=== PATIENT | male | born 1980 | race American Indian/Alaskan Native ===

== ENCOUNTER 2019-08-26 17:36 | Inpatient (IN) | payer BC, OTHER ==
[2019-08-26] MEDS ORDERED: SODIUM CHLORIDE 0.9% 1000 ML IV SOLN IV ONE (19:24)
--- NOTE | 2019-08-26 19:26 | Event Note ---
ED Screening Note ED Screening Note: FEBRILE TACHYCARDIA SOB This initial assessment/diagnostic orders/clinical plan/treatment(s) is/are subject to change based on patients health status, clinical progression and re- assessment by fellow clinical providers in the ED. Further treatment and workup at subsequent clinical providers discretion. Patient/guardian urged not to elope from the ED as their condition may be serious if not clinically assessed and managed. Initial orders include: CODE SEPSIS
[2019-08-26] MEDS ORDERED: AZITHROMYCIN 500 MG in SODIUM CHLORIDE 0.9% 250ML 250 ML IV SCH (20:00)
[2019-08-26 20:06] LABS: Hematocrit 45.4 % (35.5-45.6); Hemoglobin 15.3 gm/dl (11.8-15.2); Mean Corpuscular HGB Conc 34 % (32-34); Mean Corpuscular Volume 95 fl (84-94); Platelet Count 217 K/mm3 (140-440); Red Blood Count 4.76 M/mm3 (3.65-5.03); Red Cell Distribution Width 12.6 % (13.2-15.2)
[2019-08-26 20:24] LABS: Alanine Aminotransferase 58 units/L (7-56); Albumin 3.4 g/dL (3.9-5); BUN/Creatinine Ratio 15; Blood Urea Nitrogen 9 mg/dL (9-20); Calcium 8.7 mg/dL (8.4-10.2); Hemolysis Index 17
--- NOTE | 2019-08-26 20:36 | XRay Report ---
CHEST 1 VIEW 7:53 PM INDICATION / CLINICAL INFORMATION: Difficulty breathing, cough and low O2 sats. COMPARISON: None available. FINDINGS: SUPPORT DEVICES: None. HEART / MEDIASTINUM: There is borderline cardiomegaly and prominence of the central pulmonary vessels . LUNGS / PLEURA: Interstitial lung markings are mildly increased in both perihilar regions and lower l raji zones. There is minimal subsegmental parenchymal disease in the right lung base. No pneumothorax. ADDITIONAL FINDINGS: The right hemidiaphragm is mildly elevated. IMPRESSION: 1. Borderline cardiomegaly and pulmonary vascular congestion/edema. 2. Mild right basilar subsegmental atelectasis and elevation of the right hemidiaphragm. Signer Name: Salvador Davis MD Signed: 08/26/2019 8:32 PM Workstation Name: [id number]
[2019-08-26] MEDS ORDERED: ACETAMINOPHEN 500 MG TAB PO ONE (20:41)
[2019-08-26] MEDS ORDERED: cefTRIAXone/NS 2 GM/100 ML 2 GM/100 ML BAG IV ONE (20:42)
[2019-08-26 20:46] LABS: Chol/HDL Ratio 4.17 %; HDL Cholesterol 29 mg/dL (40-59)
--- NOTE | 2019-08-26 21:01 | Emergency Department Report ---
HPI - General Chief Complaint: Dyspnea/Respdistress PUI?: Yes Time Seen by Provider: 08/26/19 19:24 - HPI HPI: Room 10 The patient is a 39-year-old male present with a chief complaint of shortness of breath. The patient states for 11 days he has had shortness of breath. Patient admits to a cough that has been nonproductive. Patient admits to subjective fever. The patient states he was tested for COVID-19 5 days ago but has not yet received his results. ED Past Medical Hx - Past Medical History Previous Medical History?: No - Surgical History Past Surgical History?: No - Family History Family history: no significant - Social History Smoking Status: Never Smoker Substance Use Type: None (Denies illicit drug use), Alcohol ED Review of Systems ROS: Stated complaint: SOB,LOW 02 Other details as noted in HPI Constitutional: fever Respiratory: cough, shortness of breath Endocrine: no symptoms reported Physical Exam - Physical Exam Vital Signs: Vital Signs 08/26/19 19:25 Temperature 102.9 F H Pulse Rate 122 H Respiratory 16 Rate Blood Pressure 130/82 O2 Sat by Pulse 88 Oximetry Physical Exam: GENERAL: The patient is well-developed well-nourished male lying on stretcher n ot appearing to be in acute distress. [] HEENT: Normocephalic. Atraumatic. Extraocular motions are intact. Patient has moist mucous membranes. NECK: Supple. Trachea midline CHEST/LUNGS: Occasional rhonchi. There is no respiratory distress noted. HEART/CARDIOVASCULAR: Regular. There is tachycardia. There is no gallop rub or murmur. ABDOMEN: Abdomen is soft, nontender. Patient has normal bowel sounds. There is no abdominal distention. SKIN: There is no rash. There is no diaphoresis. NEURO: The patient is awake, alert, and oriented. The patient is cooperative. The patient has normal speech MUSCULOSKELETAL: There is no evidence of acute injury. ED Course Vital Signs 08/26/19 19:25 Temperature 102.9 F H Pulse Rate 122 H Respiratory 16 Rate Blood Pressure 130/82 O2 Sat by Pulse 88 Oximetry ED Medical Decision Making - Lab Data Result diagrams: 08/26/19 19:38 08/26/19 19:38 - Differential Diagnosis COVID-19, pneumonia, bronchitis Critical care attestation.: If time is entered above; I have spent that time in minutes in the direct care of this critically ill patient, excluding procedure time. ED Disposition Clinical Impression: Bilateral pneumonia, Suspected COVID-19 virus infection, Hypoxia Disposition: OP ADMIT IP TO THIS HOSP Is pt being admited?: Yes Does the pt Need Aspirin: No Condition: Serious Instructions: Bacterial Pneumonia (ED) Referrals: PRIMARY CARE, [Primary Care Provider] - 3-5 Days Time of Disposition: 21:02 (Hospitalist paged (Dr Ivy))
[2019-08-26 21:07] LABS: LDL Cholesterol,Direct 76 mg/dL (50-130)
[2019-08-26] MEDS ORDERED: dexAMETHasone 4 MG/ML VIAL IV ONE (21:29)
[2019-08-26] MEDS ORDERED: SODIUM CHLORIDE 0.9% 1000 ML 2,000 ML ONE (21:34)
[2019-08-26 21:49] LABS: Basophils % (Manual) 0 % (0.0-1.8); Eosinophils % (Manual) 0 % (0.0-4.3); RBC Morphology Normal; Total Cells Counted 100
[2019-08-26] MEDS ORDERED: ACETAMINOPHEN 325 MG TAB PO PRN (23:20)
[2019-08-26] MEDS ORDERED: MAGNESIUM HYDROXIDE (MOM) ORAL LIQD UDC PO PRN (23:20)
[2019-08-26] MEDS ORDERED: ONDANSETRON 4 MG/2 ML INJ IV PRN (23:20)
--- NOTE | 2019-08-26 23:28 | History and Physical Report ---
History of Present Illness Date of examination: 08/26/19 Date of admission: 08/26/19 21:35 Chief complaint: Cough Shortness of breath History of present illness: 39-year-old male with no significant past medical history presenting to the emergency room today complaining of shortness of breath or cough which has been ongoing for about 10 to 11 days. Cough has been nonproductive. He has had some low-grade fever at home. He denies any chest pain. No nausea vomiting, no diarrhea, no abdominal pain, no hematuria or dysuria, no headache or dizziness. Patient denies any sick contacts and no recent recent travel. Denies contact with anyone with COVID-19. Patient indicates that he was tested for COVID 19 about 5 days ago however he has not received the results. Upon arrival in the emergency room patient was found to be hypoxic with O2 saturation of about 88 on room air. Patient was placed on oxygen with improvement in his oxygen saturation. Chest x-ray done was consistent with possible pneumonia. Patient has been placed on isolation precautions to rule out COVID-19. Past History Past Medical History: No medical history Past Surgical History: No surgical history Social history: no significant social history Family history: no significant family history Medications and Allergies Allergies Allergy/AdvReac Type Severity Reaction Status Date / Time No Known Allergies Allergy Verified 08/26/19 19:27 Active Meds: Active Medications Acetaminophen (Tylenol) 650 mg PO Q4H PRN PRN Reason: Pain MILD(1-3)/Fever >100.5/VELASQUEZ Enoxaparin Sodium (Enoxaparin) 40 mg SUB-Q QDAY@2200 KAREEM Azithromycin 500 mg/ Sodium (Chloride) 250 mls @ 250 mls/hr IV Q24HR KAREEM; Pr otocol Last Admin: 08/26/19 22:33 Dose: 250 mls/hr Documented by: Ceftriaxone Sodium (Rocephin/Ns 2 Gm/100 Ml) 2 gm in 100 mls @ 200 mls/hr IV Q24HR KAREEM; Protocol Magnesium Hydroxide (Milk Of Magnesia) 30 ml PO Q4H PRN PRN Reason: Constipation Ondansetron HCl (Zofran) 4 mg IV Q8H PRN PRN Reason: Nausea And Vomiting Sodium Chloride (Sodium Chloride Flush Syringe 10 Ml) 10 ml IV BID KAREEM Sodium Chloride (Sodium Chloride Flush Syringe 10 Ml) 10 ml IV PRN PRN PRN Reason: LINE FLUSH Review of Systems Constitutional: fever, no chills Ears, nose, mouth and throat: no nasal congestion, no sore throat Cardiovascular: no chest pain, no palpitations Respiratory: cough, shortness of breath Gastrointestinal: no abdominal pain, no nausea, no vomiting, no diarrhea Genitourinary Male: no dysuria, no hematuria Musculoskeletal: no neck pain, no low back pain Integumentary: no rash, no pruritis Neurological: no headaches, no confusion Psychiatric: no anxiety, no depression Exam - Constitutional Vitals: Temp Pulse Resp BP Pulse Ox 102.9 F H 104 H 43 H 142/78 92 08/26/19 19:25 08/26/19 21:45 08/26/19 21:45 08/26/19 21:45 08/26/19 21:45 General appearance: Present: no acute distress, well-nourished - EENT Eyes: Present: PERRL, EOM intact. Absent: scleral icterus ENT: hearing intact, clear oral mucosa, dentition normal - Neck Neck: Present: supple, normal ROM - Respiratory Respiratory effort: normal Respiratory: bilateral: diminished - Cardiovascular Rhythm: regular Heart Sounds: Present: S1 & S2. Absent: gallop, systolic murmur, diastolic murmur, rub - Extremities Extremities: no ischemia, pulses intact, pulses symmetrical, No edema, Full ROM Peripheral Pulses: within normal limits - Abdominal General gastrointestinal: Present: soft, non-tender, non-distended, normal bowel sounds - Integumentary Integumentary: Present: clear, warm, dry - Musculoskeletal Musculoskeletal: strength equal bilaterally - Psychiatric Psychiatric: appropriate mood/affect, intact judgment & insight, memory intact, cooperative - Neurologic Neurologic: CNII-XII intact, no focal deficits, moves all extremities HEART Score - HEART Score Troponin: Troponin T 0.032 ng/mL (0.00-0.029) H 08/26/19 19:38 Results - Labs CBC & Chem 7: 08/26/19 19:38 08/27/19 05:09 Labs: Abnormal lab results 08/26/19 08/26/19 08/26/19 Range/Units 19:38 19:38 19:38 WBC 12.2 H (4.5-11.0) K/mm3 Hgb 15.3 H (11.8-15.2) gm/dl MCV 95 H (84-94) fl RDW 12.6 L (13.2-15.2) % Seg Neuts % (Manual) 88.0 H (40.0-70.0) % Lymphocytes % (Manual) 7.0 L (13.4-35.0) % Seg Neutrophils # Man 10.7 H (1.8-7.7) K/mm3 Lymphocytes # (Manual) 0.9 L (1.2-5.4) K/mm3 D-Dimer (0-234) ng/mlDDU Sodium 136 L (137-145) mmol/L Chloride 97.1 L (98-107) mmol/L Creatinine 0.6 L (0.8-1.5) mg/dL Glucose 117 H (75-100) mg/dL Lactic Acid 2.30 H* (0.7-2.0) mmol/L AST 46 H (5-40) units/L ALT 58 H (7-56) units/L Lactate Dehydrogenase (91-180) units/L Troponin T 0.032 H (0.00-0.029) ng/mL C-Reactive Protein (0.00-1.30) mg/dL NT-Pro-B Natriuret Pep (0-450) pg/mL Albumin 3.4 L (3.9-5) g/dL HDL Cholesterol 29 L (40-59) mg/dL 08/26/19 08/26/19 08/26/19 Range/Units 19:38 19:38 19:38 WBC (4.5-11.0) K/mm3 Hgb (11.8-15.2) gm/dl MCV (84-94) fl RDW (13.2-15.2) % Seg Neuts % (Manual) (40.0-70.0) % Lymphocytes % (Manual) (13.4-35.0) % Seg Neutrophils # Man (1.8-7.7) K/mm3 Lymphocytes # (Manual) (1.2-5.4) K/mm3 D-Dimer 504.52 H (0-234) ng/mlDDU Sodium (137-145) mmol/L Chloride (98-107) mmol/L Creatinine (0.8-1.5) mg/dL Glucose 116 H (75-100) mg/dL Lactic Acid (0.7-2.0) mmol/L AST (5-40) units/L ALT (7-56) units/L Lactate Dehydrogenase 740 H (91-180) units/L Troponin T (0.00-0.029) ng/mL C-Reactive Protein 25.00 H (0.00-1.30) mg/dL NT-Pro-B Natriuret Pep 616.8 H (0-450) pg/mL Albumin (3.9-5) g/dL HDL Cholesterol (40-59) mg/dL Assessment and Plan - Patient Problems (1) Bilateral pneumonia Current Visit: Yes Status: Acute Plan to address problem: Patient commenced on empiric IV antibiotics. (2) Hypoxia Current Visit: Yes Status: Acute Plan to address problem: Possibly secondary to underlying pneumonia. We will keep oxygen saturation grea ter or equal to 94%. (3) Suspected COVID-19 virus infection Current Visit: Yes Status: Acute Plan to address problem: Patient placed on isolation precautions. We will request evaluation and recommendations from infectious disease. He has been started on IV steroid. (4) DVT prophylaxis Current Visit: Yes Status: Acute Plan to address problem: Patient placed on subcutaneous Lovenox. (5) Full code status Current Visit: Yes Status: Acute
[2019-08-27 02:08] LABS: Bilirubin,Urine NEG (Negative); Blood,Urine NEG (Negative); Color,Urine Yellow (Yellow); Mucus,Urine FEW /HPF
[2019-08-27 06:06] LABS: Hematocrit 44.8 % (35.5-45.6); Hemoglobin 15.1 gm/dl (11.8-15.2); Mean Corpuscular HGB Conc 34 % (32-34); Mean Corpuscular Volume 96 fl (84-94); Platelet Count 213 K/mm3 (140-440); Red Blood Count 4.68 M/mm3 (3.65-5.03); Red Cell Distribution Width 13.1 % (13.2-15.2)
[2019-08-27 06:10] LABS: BUN/Creatinine Ratio 22; Blood Urea Nitrogen 11 mg/dL (9-20); Calcium 8.3 mg/dL (8.4-10.2); Hemolysis Index 6
[2019-08-27 06:26] LABS: INR 1.01 (0.87-1.13)
[2019-08-27] MEDS ORDERED: dexAMETHasone 4 MG/ML VIAL IV SCH (10:00)
--- NOTE | 2019-08-27 10:31 | Event Note ---
Date: 08/27/19 COVID results pending. High suspicion. Patient on NRB. Recs: continue steroids if COVID positive, please order Remdesivir x 5 days and also order tocilizumab 8mg/kg x 1 monitor markers and oxygenation
[2019-08-27] MEDS: DEXAMETHASONE 4 MG TAB PO SCH (11:10)
--- NOTE | 2019-08-27 14:15 | Progress Note ---
Subjective Date of service: 08/27/19 Interval history: 39-year-old male with no significant past medical history presenting to the emergency room today complaining of shortness of breath or cough which has been ongoing for about 10 to 11 days. Cough has been nonproductive. He has had some low-grade fever at home. He denies any chest pain. No nausea vomiting, no diarrhea, no abdominal pain, no hematuria or dysuria, no headache or dizziness. Patient denies any sick contacts and no recent recent travel. Denies contact with anyone with COVID-19. Patient indicates that he was tested for COVID 19 about 5 days ago however he has not received the results. Upon arrival in the emergency room patient was found to be hypoxic with O2 saturation of about 88 on room air. Patient was placed on oxygen with improvement in his oxygen saturation. Chest x-ray done was consistent with possible pneumonia. Patient has been placed on isolation precautions to rule out COVID-19. 08/26 Patient is awake alert and oriented, [id number] Mildly short of breath and has mild cough History is limited He is on nonrebreather mask COVID-19 test result is pending Assessment and plan Bilateral pneumonia Continue empiric IV antibiotics with Rocephin and azithromycin Suspected COVID-19 pneumonia Test results pending Brief ID note reviewed We will start on Remdesivir x 5 days and Actemra 1 dose Acute hypoxic respiratory failure continue oxygen via nonrebreather mask DVT prophylaxis Continue Lovenox Objective - Constitutional Vitals: Vital Signs - 12hr 08/27/19 08/27/19 03:09 04:37 Temperature 97.3 F L Pulse Rate 92 H Respiratory 16 Rate Blood Pressure 142/78 137/78 O2 Sat by Pulse 96 Oximetry General appearance: Present: mild distress - EENT Eyes: PERRL, EOM intact ENT: hearing intact, clear oral mucosa (Lisinopril1) - Neck Neck: supple, normal ROM, no masses or JVD - Respiratory Respiratory effort: other Respiratory: bilateral: CTA, diminished - Cardiovascular Rhythm: regular Heart Sounds: Present: S1 & S2 Extremities: No edema - Gastrointestinal General gastrointestinal: Present: soft, non-tender Rectal Exam: deferred - Genitourinary Male genitourinary: deferred - Integumentary Integumentary: clear - Musculoskeletal Musculoskeletal: strength equal bilaterally - Neurologic Neurologic: no focal deficits, moves all extremities - Psychiatric Psychiatric: appropriate mood/affect - Labs CBC & Chem 7: 08/27/19 05:09 08/27/19 05:09 Labs: Abnormal lab results 08/26/19 08/26/19 08/26/19 Range/Units 19:38 19:38 19:38 WBC 12.2 H (4.5-11.0) K/mm3 Hgb 15.3 H (11.8-15.2) gm/dl MCV 95 H (84-94) fl RDW 12.6 L (13.2-15.2) % Seg Neuts % (Manual) 88.0 H (40.0-70.0) % Lymphocytes % (Manual) 7.0 L (13.4-35.0) % Seg Neutrophils # Man 10.7 H (1.8-7.7) K/mm3 Lymphocytes # (Manual) 0.9 L (1.2-5.4) K/mm3 D-Dimer (0-234) ng/mlDDU Sodium 136 L (137-145) mmol/L Chloride 97.1 L (98-107) mmol/L Creatinine 0.6 L (0.8-1.5) mg/dL Glucose 117 H (75-100) mg/dL Lactic Acid 2.30 H* (0.7-2.0) mmol/L Calcium (8.4-10.2) mg/dL Ferritin (13.0-400.0) ng/mL AST 46 H (5-40) units/L ALT 58 H (7-56) units/L Lactate Dehydrogenase (91-180) units/L Troponin T 0.032 H (0.00-0.029) ng/mL C-Reactive Protein (0.00-1.30) mg/dL NT-Pro-B Natriuret Pep (0-450) pg/mL Albumin 3.4 L (3.9-5) g/dL HDL Cholesterol 29 L (40-59) mg/dL 08/26/19 08/26/19 08/26/19 Range/Units 19:38 19:38 19:38 WBC (4.5-11.0) K/mm3 Hgb (11.8-15.2) gm/dl MCV (84-94) fl RDW (13.2-15.2) % Seg Neuts % (Manual) (40.0-70.0) % Lymphocytes % (Manual) (13.4-35.0) % Seg Neutrophils # Man (1.8-7.7) K/mm3 Lymphocytes # (Manual) (1.2-5.4) K/mm3 D-Dimer 504.52 H (0-234) ng/mlDDU Sodium (137-145) mmol/L Chloride (98-107) mmol/L Creatinine (0.8-1.5) mg/dL Glucose 116 H (75-100) mg/dL Lactic Acid (0.7-2.0) mmol/L Calcium (8.4-10.2) mg/dL Ferritin 1959.0 H (13.0-400.0) ng/mL AST (5-40) units/L ALT (7-56) units/L Lactate Dehydrogenase 740 H (91-180) units/L Troponin T (0.00-0.029) ng/mL C-Reactive Protein 25.00 H (0.00-1.30) mg/dL NT-Pro-B Natriuret Pep (0-450) pg/mL Albumin (3.9-5) g/dL HDL Cholesterol (40-59) mg/dL 08/26/19 08/27/19 08/27/19 Range/Units 19:38 05:09 05:09 WBC (4.5-11.0) K/mm3 Hgb (11.8-15.2) gm/dl MCV 96 H (84-94) fl RDW 13.1 L (13.2-15.2) % Seg Neuts % (Manual) (40.0-70.0) % Lymphocytes % (Manual) (13.4-35.0) % Seg Neutrophils # Man (1.8-7.7) K/mm3 Lymphocytes # (Manual) (1.2-5.4) K/mm3 D-Dimer (0-234) ng/mlDDU Sodium (137-145) mmol/L Chloride (98-107) mmol/L Creatinine 0.5 L (0.8-1.5) mg/dL Glucose 125 H (75-100) mg/dL Lactic Acid (0.7-2.0) mmol/L Calcium 8.3 L (8.4-10.2) mg/dL Ferritin (13.0-400.0) ng/mL AST (5-40) units/L ALT (7-56) units/L Lactate Dehydrogenase (91-180) units/L Troponin T (0.00-0.029) ng/mL C-Reactive Protein (0.00-1.30) mg/dL NT-Pro-B Natriuret Pep 616.8 H (0-450) pg/mL Albumin (3.9-5) g/dL HDL Cholesterol (40-59) mg/dL HEART Score - HEART Score Troponin: Troponin T 0.032 ng/mL (0.00-0.029) H 08/26/19 19:38
[2019-08-27 15:13] LABS: Band Neutrophils # (Manual) 0.1 K/mm3; Basophils % (Manual) 0 % (0.0-1.8); Eosinophils % (Manual) 0 % (0.0-4.3); Platelet Estimate Consistent w Auto; RBC Morphology Normal; Total Cells Counted 100
[2019-08-27] MEDS ORDERED: AZITHROMYCIN 250 MG TAB PO SCH (22:00)
[2019-08-27] MEDS ORDERED: cefTRIAXone/NS 2 GM/100 ML 2 GM/100 ML BAG IV SCH (22:00)
[2019-08-27] MEDS: ENOXAPARIN 40 MG/0.4 ML INJ SUB-Q SCH (22:39)
[2019-08-28] MEDS: DEXAMETHASONE 4 MG TAB PO SCH (09:27)
[2019-08-28] MEDS ORDERED: REMDESIVIR 200 MG in SODIUM CHLORIDE 0.9% 250ML 250 ML IV ONE (14:00)
[2019-08-28] MEDS ORDERED: SODIUM CHLORIDE 0.9% 50 ML IVPB IV ONE (14:00)
--- NOTE | 2019-08-28 15:33 | Progress Note ---
Subjective Date of service: 08/28/19 Interval history: 39-year-old male with no significant past medical history presenting to the emergency room today complaining of shortness of breath or cough which has been ongoing for about 10 to 11 days. Cough has been nonproductive. He has had some low-grade fever at home. He denies any chest pain. No nausea vomiting, no diarrhea, no abdominal pain, no hematuria or dysuria, no headache or dizziness. Patient denies any sick contacts and no recent recent travel. Denies contact with anyone with COVID-19. Patient indicates that he was tested for COVID 19 about 5 days ago however he has not received the results. Upon arrival in the emergency room patient was found to be hypoxic with O2 saturation of about 88 on room air. Patient was placed on oxygen with improvement in his oxygen saturation. Chest x-ray done was consistent with possible pneumonia. Patient has been placed on isolation precautions for COVID-19. 08/26 Patient is awake alert and oriented, [id number] Mildly short of breath and has mild cough History is limited He is on nonrebreather mask COVID-19 test result is positive Assessment and plan Bilateral pneumonia 2/2 COVID-19 pneumonia Lab results reviewed Brief ID note reviewed Remdesivir x 5 days and Actemra 1 dose Procalcitonin is normal Discontinue IV antibiotics Recheck inflammatory markers tomorrow Acute hypoxic respiratory failure continue oxygen via nonrebreather mask DVT prophylaxis Continue Lovenox Objective - Constitutional Vitals: Vital Signs - 12hr 08/28/19 08/28/19 05:50 07:46 Temperature 98.7 F Pulse Rate 95 H Respiratory 16 Rate Blood Pressure 116/79 O2 Sat by Pulse 97 100 Oximetry General appearance: Present: mild distress - EENT Eyes: PERRL, EOM intact ENT: hearing intact, clear oral mucosa - Neck Neck: supple, normal ROM - Respiratory Respiratory effort: normal (Mildly short of breath) Respiratory: bilateral: CTA, diminished - Cardiovascular Rhythm: regular Heart Sounds: Present: S1 & S2 Extremities: No edema - Gastrointestinal General gastrointestinal: Present: soft, non-tender Rectal Exam: deferred - Genitourinary Male genitourinary: deferred - Integumentary Integumentary: clear - Musculoskeletal Musculoskeletal: strength equal bilaterally - Neurologic Neurologic: no focal deficits - Psychiatric Psychiatric: appropriate mood/affect - Labs CBC & Chem 7: 08/27/19 05:09 08/27/19 05:09 Labs: Abnormal lab results 08/26/19 Range/Units Unknown Coronavirus (PCR) Positive A (Negative) HEART Score - HEART Score Troponin: Troponin T 0.032 ng/mL (0.00-0.029) H 08/26/19 19:38
[2019-08-28] MEDS ORDERED: TOCILIZUMAB 400 MG in SODIUM CHLORIDE 0.9% 100 ML IV ONE (16:00)
[2019-08-28] MEDS: ENOXAPARIN 40 MG/0.4 ML INJ SUB-Q SCH (21:11)
[2019-08-28] MEDS: SODIUM CHLORIDE 0.9% 50 ML IVPB IV SCH (21:14)
--- NOTE | 2019-08-29 12:50 | Progress Note ---
Subjective Date of service: 08/29/19 Interval history: 39-year-old male with no significant past medical history presenting to the emergency room today complaining of shortness of breath or cough which has been ongoing for about 10 to 11 days. Cough has been nonproductive. He has had some low-grade fever at home. He denies any chest pain. No nausea vomiting, no diarrhea, no abdominal pain, no hematuria or dysuria, no headache or dizziness. Patient denies any sick contacts and no recent recent travel. Denies contact with anyone with COVID-19. Patient indicates that he was tested for COVID 19 about 5 days ago however he has not received the results. Upon arrival in the emergency room patient was found to be hypoxic with O2 saturation of about 88 on room air. Patient was placed on oxygen with improvement in his oxygen saturation. Chest x-ray done was consistent with possible pneumonia. Patient has been placed on isolation precautions for COVID-19. 08/26 Patient is awake alert and oriented, [id number] Mildly short of breath and has mild cough History is limited He is on nonrebreather mask COVID-19 test result is positive 08/28 Patient is alert and oriented He is still on nonrebreather mask Overall feels better and less dyspneic Denies any chest pain, cough or fever Discussed with respiratory therapist to see if he can come off the nonrebreather mask to nasal cannula Lab results reviewed Assessment and plan Bilateral pneumonia 2/2 COVID-19 pneumonia Lab results reviewed Brief ID note reviewed Remdesivir x 5 days and Actemra 1 dose Procalcitonin is normal Discontinue IV antibiotics Acute hypoxic respiratory failure continue oxygen via nonrebreather mask Wean as tolerated to nasal cannula DVT prophylaxis Continue Lovenox Objective - Constitutional Vitals: Vital Signs - 12hr 08/29/19 08/29/19 09:00 10:00 O2 Sat by Pulse 98 92 Oximetry General appearance: Present: mild distress - EENT Eyes: PERRL, EOM intact ENT: hearing intact, clear oral mucosa - Neck Neck: supple, normal ROM (Thought but as I suppressed myself) - Respiratory Respiratory effort: normal ( sixth) Respiratory: bilateral: CTA - Cardiovascular Rhythm: regular Heart Sounds: Present: S1 & S2 (Bumetanide pathology right) Extremities: No edema - Gastrointestinal General gastrointestinal: Present: soft, non-tender Rectal Exam: deferred - Genitourinary Male genitourinary: deferred - Integumentary Integumentary: clear - Musculoskeletal Musculoskeletal: strength equal bilaterally - Neurologic Neurologic: no focal deficits - Psychiatric Psychiatric: appropriate mood/affect - Labs CBC & Chem 7: 08/27/19 05:09 08/27/19 05:09 Labs: Abnormal lab results 08/29/19 08/29/19 08/29/19 Range/Units 06:03 06:03 06:03 D-Dimer 669.92 H (0-234) ng/mlDDU Ferritin 1400.0 H (13.0-400.0) ng/mL Lactate Dehydrogenase 534 H (91-180) units/L HEART Score - HEART Score Troponin: Troponin T 0.032 ng/mL (0.00-0.029) H 08/26/19 19:38
[2019-08-29] MEDS: DEXAMETHASONE 4 MG TAB PO SCH (13:34)
[2019-08-29] MEDS: REMDESIVIR 100 MG in SODIUM CHLORIDE 0.9% 250ML 250 ML IV SCH (20:52)
[2019-08-29] MEDS: SODIUM CHLORIDE 0.9% 50 ML IVPB IV SCH (21:05)
[2019-08-29] MEDS: ENOXAPARIN 40 MG/0.4 ML INJ SUB-Q SCH (21:57)
--- NOTE | 2019-08-30 10:30 | Progress Note ---
Assessment and Plan Assessment and plan: 39-year-old male with no significant past medical history presenting to the emergency room today complaining of shortness of breath or cough which has been ongoing for about 10 to 11 days. Cough has been nonproductive. He has had some low-grade fever at home. He denies any chest pain. No nausea vomiting, no diarrhea, no abdominal pain, no hematuria or dysuria, no headache or dizziness. Patient denies any sick contacts and no recent recent travel. Denies contact with anyone with COVID-19. Patient indicates that he was tested for COVID 19 about 5 days ago however he has not received the results. Upon arrival in the emergency room patient was found to be hypoxic with O2 saturation of about 88 on room air. Patient was placed on oxygen with improvement in his oxygen saturation. Chest x-ray done was consistent with possible pneumonia. Patient has been placed on isolation precautions for COVID-19. Lab results reviewed Brief ID note reviewed Remdesivir x 5 days and Actemra 1 dose Procalcitonin is normal Discontinue IV antibiotics 08/26 Patient is awake alert and oriented, [id number] Mildly short of breath and has mild cough History is limited He is on nonrebreather mask COVID-19 test result is positive 08/28 Patient is alert and oriented He is still on nonrebreather mask Overall feels better and less dyspneic Denies any chest pain, cough or fever Discussed with respiratory therapist to see if he can come off the nonrebreather mask to nasal cannula Lab results reviewed 08/29: Continue current therapy patient still hypoxic. Continue oxygen management. Will obtain pulmonary consult due to hypoxia. Continue to encourage prone positioning. Wean oxygen as tolerated. Continue steroid therapy Assessment Bilateral pneumonia 2/2 Severe sepsis secondary to COVID-19 COVID-19 pneumonia Acute hypoxic respiratory failure continue oxygen via nonrebreather mask DVT prophylaxis Continue Lovenox History Interval history: Patient seen and examined today resting comfortably. Discussed with owen barrera. Concerned about his health. Still with mild shortness of breath. Hospitalist Physical - Physical exam Narrative exam: VITAL SIGNS: Reviewed. GENERAL: The patient appears normally developed, intermittent cough during exam vital signs as documented. HEAD: No signs of head trauma. EYES: Pupils are equal. Extraocular motions intact. EARS: Hearing grossly intact. MOUTH: Oropharynx is normal. NECK: No adenopathy, no JVD. CHEST: Chest with clear breath sounds bilaterally. No wheezes, rales, or rhonchi. CARDIAC: Regular rate and rhythm. S1 and S2, without murmurs, gallops, or rubs. VASCULAR: No Edema. Peripheral pulses normal and equal in all extremities. ABDOMEN: Soft, non tender and non distended. No rebound or guarding, and no masses palpated. Bowel Sounds normal. MUSCULOSKELETAL: Good range of motion of all major joints. Extremities without clubbing, cyanosis or edema. NEUROLOGIC EXAM: Alert and oriented x 3 No focal sensory or strength deficits. Speech normal. Follows commands. PSYCHIATRIC: Mood normal. SKIN: detial exam as documented in skin assessment - Constitutional Vitals: Temp Pulse Resp BP Pulse Ox 97.4 F L 79 20 149/92 96 08/30/19 05:33 08/30/19 05:33 08/30/19 05:33 08/30/19 05:33 08/30/19 05:33 General appearance: Present: mild distress HEART Score - HEART Score Troponin: Troponin T 0.032 ng/mL (0.00-0.029) H 08/26/19 19:38 Results - Labs CBC & Chem 7: 08/27/19 05:09 08/27/19 05:09 Labs: Laboratory Last Values WBC 9.6 K/mm3 (4.5-11.0) 08/27/19 05:09 RBC 4.68 M/mm3 (3.65-5.03) 08/27/19 05:09 Hgb 15.1 gm/dl (11.8-15.2) 08/27/19 05:09 Hct 44.8 % (35.5-45.6) 08/27/19 05:09 MCV 96 fl (84-94) H 08/27/19 05:09 MCH 32 pg (28-32) 08/27/19 05:09 MCHC 34 % (32-34) 08/27/19 05:09 RDW 13.1 % (13.2-15.2) L 08/27/19 05:09 Plt Count 213 K/mm3 (140-440) 08/27/19 05:09 Add Manual Diff Complete 08/27/19 05:09 Total Counted 100 08/27/19 05:09 Seg Neutrophils % [employer] 08/27/19 05:09 Seg Neuts % (Manual) 94.0 % (40.0-70.0) H 08/27/19 05:09 Band Neutrophils % 1.0 % 08/27/19 05:09 Lymphocytes % (Manual) 3.0 % (13.4-35.0) L 08/27/19 05:09 Reactive Lymphs % (Man) 0 % 08/27/19 05:09 Monocytes % (Manual) 2.0 % (0.0-7.3) 08/27/19 05:09 Eosinophils % (Manual) 0 % (0.0-4.3) 08/27/19 05:09 Basophils % (Manual) 0 % (0.0-1.8) 08/27/19 05:09 Metamyelocytes % 0 % 08/27/19 05:09 Myelocytes % 0 % 08/27/19 05:09 Promyelocytes % 0 % 08/27/19 05:09 Blast Cells % 0 % 08/27/19 05:09 Nucleated RBC % Not Reportable 08/27/19 05:09 Seg Neutrophils # Man 9.0 K/mm3 (1.8-7.7) H 08/27/19 05:09 Band Neutrophils # 0.1 K/mm3 08/27/19 05:09 Lymphocytes # (Manual) 0.3 K/mm3 (1.2-5.4) L 08/27/19 05:09 Abs React Lymphs (Man) 0.0 K/mm3 08/27/19 05:09 Monocytes # (Manual) 0.2 K/mm3 (0.0-0.8) 08/27/19 05:09 Eosinophils # (Manual) 0.0 K/mm3 (0.0-0.4) 08/27/19 05:09 Basophils # (Manual) 0.0 K/mm3 (0.0-0.1) 08/27/19 05:09 Metamyelocytes # 0.0 K/mm3 08/27/19 05:09 Myelocytes # 0.0 K/mm3 08/27/19 05:09 Promyelocytes # 0.0 K/mm3 08/27/19 05:09 Blast Cells # 0.0 K/mm3 08/27/19 05:09 WBC Morphology Not Reportable 08/27/19 05:09 Hypersegmented Neuts Not Reportable 08/27/19 05:09 Hyposegmented Neuts Not Reportable 08/27/19 05:09 Hypogranular Neuts Not Reportable 08/27/19 05:09 Smudge Cells Not Reportable 08/27/19 05:09 Toxic Granulation Not Reportable 08/27/19 05:09 Toxic Vacuolation Not Reportable 08/27/19 05:09 Dohle Bodies Not Reportable 08/27/19 05:09 Pelger-Huet Anomaly Not Reportable 08/27/19 05:09 Deepak Rods Not Reportable 08/27/19 05:09 Platelet Estimate Consistent w auto 08/27/19 05:09 Clumped Platelets Not Reportable 08/27/19 05:09 Plt Clumps, EDTA Not Reportable 08/27/19 05:09 Large Platelets Not Reportable 08/27/19 05:09 Giant Platelets Not Reportable 08/27/19 05:09 Platelet Satelliting Not Reportable 08/27/19 05:09 Plt Morphology Comment Not Reportable 08/27/19 05:09 RBC Morphology Normal 08/27/19 05:09 Dimorphic RBCs Not Reportable 08/27/19 05:09 Polychromasia Not Reportable 08/27/19 05:09 Hypochromasia Not Reportable 08/27/19 05:09 Poikilocytosis Not Reportable 08/27/19 05:09 Anisocytosis Not Reportable 08/27/19 05:09 Microcytosis Not Reportable 08/27/19 05:09 Macrocytosis Not Reportable 08/27/19 05:09 Spherocytes Not Reportable 08/27/19 05:09 Pappenheimer Bodies Not Reportable 08/27/19 05:09 Sickle Cells Not Reportable 08/27/19 05:09 Target Cells Not Reportable 08/27/19 05:09 Tear Drop Cells Not Reportable 08/27/19 05:09 Ovalocytes Not Reportable 08/27/19 05:09 Helmet Cells Not Reportable 08/27/19 05:09 Werner-Mcnair Bodies Not Reportable 08/27/19 05:09 [place] Rings Not Reportable 08/27/19 05:09 Queenie Cells Not Reportable 08/27/19 05:09 Bite Cells Not Reportable 08/27/19 05:09 Crenated Cell Not Reportable 08/27/19 05:09 Elliptocytes Not Reportable 08/27/19 05:09 Acanthocytes (Spur) Not Reportable 08/27/19 05:09 Rouleaux Not Reportable 08/27/19 05:09 Hemoglobin C Crystals Not Reportable 08/27/19 05:09 Schistocytes Not Reportable 08/27/19 05:09 Malaria parasites Not Reportable 08/27/19 05:09 [place]queria Bodies Not Reportable 08/27/19 05:09 Hem Pathologist Commnt No 08/27/19 05:09 PT 13.1 Sec. (12.2-14.9) 08/27/19 05:09 INR 1.01 (0.87-1.13) 08/27/19 05:09 D-Dimer 669.92 ng/mlDDU (0-234) H 08/29/19 06:03 Sodium 142 mmol/L (137-145) 08/27/19 05:09 Potassium 4.1 mmol/L (3.6-5.0) 08/27/19 05:09 Chloride 104.4 mmol/L (98-107) 08/27/19 05:09 Carbon Dioxide 24 mmol/L (22-30) 08/27/19 05:09 Anion Gap 18 mmol/L 08/27/19 05:09 BUN 11 mg/dL (9-20) 08/27/19 05:09 Creatinine 0.5 mg/dL (0.8-1.5) L 08/27/19 05:09 Estimated GFR > 60 ml/min 08/27/19 05:09 BUN/Creatinine Ratio 22 % 08/27/19 05:09 Glucose 125 mg/dL (75-100) H 08/27/19 05:09 Lactic Acid 1.70 mmol/L (0.7-2.0) 08/27/19 01:14 Calcium 8.3 mg/dL (8.4-10.2) L 08/27/19 05:09 Ferritin 1400.0 ng/mL (13.0-400.0) H 08/29/19 06:03 Total Bilirubin 0.60 mg/dL (0.1-1.2) 08/26/19 19:38 AST 46 units/L (5-40) H 08/26/19 19:38 ALT 58 units/L (7-56) H 08/26/19 19:38 Alkaline Phosphatase 56 units/L (35-129) 08/26/19 19:38 Lactate Dehydrogenase 534 units/L (91-180) H 08/29/19 06:03 Troponin T 0.032 ng/mL (0.00-0.029) H 08/26/19 19:38 C-Reactive Protein 25.00 mg/dL (0.00-1.30) H 08/26/19 19:38 NT-Pro-B Natriuret Pep 616.8 pg/mL (0-450) H 08/26/19 19:38 Total Protein 7.1 g/dL (6.3-8.2) 08/26/19 19:38 Albumin 3.4 g/dL (3.9-5) L 08/26/19 19:38 Albumin/Globulin Ratio 0.9 % 08/26/19 19:38 Triglycerides 134 mg/dL (2-149) 08/26/19 19:38 Cholesterol 121 mg/dL (50-199) 08/26/19 19:38 LDL Cholesterol Direct 76 mg/dL (50-130) 08/26/19 19:38 HDL Cholesterol 29 mg/dL (40-59) L 08/26/19 19:38 Cholesterol/HDL Ratio 4.17 % 08/26/19 19:38 Procalcitonin 0.43 ng/mL (<0.15) 08/26/19 19:38 Urine Color Yellow (Yellow) 08/26/19 Unknown Urine Turbidity Clear (Clear) 08/26/19 Unknown Urine pH 6.0 (5.0-7.0) 08/26/19 Unknown Ur Specific [place] 1.019 (1.003-1.030) 08/26/19 Unknown Urine Protein 30 mg/dl mg/dL (Negative) 08/26/19 Unknown Urine Glucose (UA) Neg mg/dL (Negative) 08/26/19 Unknown Urine Ketones 20 mg/dL (Negative) 08/26/19 Unknown Urine Blood Neg (Negative) 08/26/19 Unknown Urine Nitrite Neg (Negative) 08/26/19 Unknown Urine Bilirubin Neg (Negative) 08/26/19 Unknown Urine Urobilinogen 4.0 mg/dL (<2.0) 08/26/19 Unknown Ur Leukocyte Esterase Neg (Negative) 08/26/19 Unknown Urine WBC (Auto) 1.0 /HPF (0.0-6.0) 08/26/19 Unknown Urine RBC (Auto) 2.0 /HPF (0.0-6.0) 08/26/19 Unknown Urine Mucus Few /HPF 08/26/19 Unknown Coronavirus (PCR) Positive (Negative) A 08/26/19 Unknown Microbiology: Microbiology 08/26/19 19:44 Peripheral/Venous Blood Culture - Preliminary NO GROWTH AFTER 72 HOURS 08/26/19 19:38 Peripheral/Venous Blood Culture - Preliminary NO GROWTH AFTER 72 HOURS [place]ne/IV: Voiding Method Toilet IV Catheter Type [Right INT / Saline Lock Antecubital] Active Medications - Current Medications Current Medications: Generic Name Dose Route Start Last Admin Trade Name Freq PRN Reason Stop Dose Admin Acetaminophen 650 mg 08/26/19 23:20 Tylenol PO Q4H PRN Pain MILD(1-3)/Fever >100.5/VELASQUEZ Dexamethasone 6 mg 08/27/19 10:00 08/29/19 13:34 Decadron PO 09/04/19 10:01 6 mg DAILY KAREEM Administration Enoxaparin Sodium 40 mg 08/27/19 22:00 08/29/19 21:57 Enoxaparin SUB-Q 40 mg QDAY@2200 KAREEM Administration REMDESIVIR 100 mg/ Sodium 250 mls @ 500 mls/hr 08/29/19 21:00 08/29/19 20:52 Chloride IV 09/01/19 21:29 500 mls/hr Q24HR@2100 KAREEM Administration Magnesium Hydroxide 30 ml 08/26/19 23:20 Milk Of Magnesia PO Q4H PRN Constipation Ondansetron HCl 4 mg 08/26/19 23:20 Zofran IV Q8H PRN Nausea And Vomiting Sodium Chloride 10 ml 08/27/19 10:00 08/29/19 21:56 Sodium Chloride Flush Syringe 10 Ml IV 10 ml BID KAREEM Administration Sodium Chloride 10 ml 08/26/19 23:20 Sodium Chloride Flush Syringe 10 Ml IV PRN PRN LINE FLUSH Sodium Chloride 50 ml 08/28/19 21:00 08/29/19 21:05 Nacl 0.9% IV 08/31/19 21:01 50 ml Q24H KAREEM Administration
[2019-08-30] MEDS: DEXAMETHASONE 4 MG TAB PO SCH (10:57)
--- NOTE | 2019-08-30 11:17 | Consultation ---
History of Present Illness - Reason for Consult Consult date: 08/30/19 covid Requesting physician: MARY TALBERT - History of Present Illness 39-year-old male with history of obesity, admitted on 08/26/2019 due to 10-day history of shortness of breath or cough associated with low-grade fever at home. He denies any chest pain. No nausea vomiting, no diarrhea, no abdominal pain, no hematuria or dysuria, no headache or dizziness. Patient denies any sick c ontacts and no recent recent travel. Denies contact with anyone with COVID-19. On arrival, temperature 102.9, HR 122, RR 46, O2 sats 88 on room air. Chest x- ray done was consistent with possible pneumonia. Review of Systems: positive in bold print General: + fever, +chills, +malaise Cutaneous: rash, pruritus Head: headaches or injury Eyes: changes in vision, eye pain, double vision Ears: ear pain, ear discharge, ringing or hearing loss Nose: nose bleeding, stuffiness Mouth & throat: bleeding gums, horseness, no dental problems, or swollen glands Neck: no pain, node enlargement/lumps, tyroid enlargement or tenderness Respiratory: +SOB, +cough, +MOSQUEDA, wheezing, sputum, hemoptysis, pleuritic chest pain Cardiovascular: chest pain, leg edema, cyanosis, MOSQUEDA, orthopnea Musculoskeletal: edema, deformities, clubbing Gastrointestinal: nausea, vomiting, hematemesis, diarrhea, constipation, melena, bright red blood in stools, fecal incontinence, jaundice Genitourinary/Reproductive: frequent urination, dysuria, hematuria, incontinence Neurogical: confusion, seizures, headaches, weakness, paresthesias, loss of speech or vision; memory loss, vertigo, tremors, numbness Psychiatric: stable mood; excessive anxiety, sadness or moodiness Past History Past Medical History: No medical history Past Surgical History: No surgical history Social history: no significant social history Family history: no significant family history Medications and Allergies Allergies Allergy/AdvReac Type Severity Reaction Status Date / Time No Known Allergies Allergy Verified 08/26/19 19:27 Active Meds: Active Medications Acetaminophen (Tylenol) 650 mg PO Q4H PRN PRN Reason: Pain MILD(1-3)/Fever >100.5/VELASQUEZ Dexamethasone (Decadron) 6 mg PO DAILY KAREEM Stop: 09/04/19 10:01 Last Admin: 08/30/19 10:57 Dose: 6 mg Documented by: Enoxaparin Sodium (Enoxaparin) 40 mg SUB-Q QDAY@2200 [facility] Last Admin: 08/29/19 21:57 Dose: 40 mg Documented by: REMDESIVIR 100 mg/ Sodium (Chloride) 250 mls @ 500 mls/hr IV Q24HR@2100 [facility] Stop: 09/01/19 21:29 Last Admin: 08/29/19 20:52 Dose: 500 mls/hr Documented by: Magnesium Hydroxide (Milk Of Magnesia) 30 ml PO Q4H PRN PRN Reason: Constipation Ondansetron HCl (Zofran) 4 mg IV Q8H PRN PRN Reason: Nausea And Vomiting Sodium Chloride (Sodium Chloride Flush Syringe 10 Ml) 10 ml IV BID [facility] Last Admin: 08/29/19 21:56 Dose: 10 ml Documented by: Sodium Chloride (Sodium Chloride Flush Syringe 10 Ml) 10 ml IV PRN PRN PRN Reason: LINE FLUSH Sodium Chloride (Nacl 0.9%) 50 ml IV Q24H [facility] Stop: 08/31/19 21:01 Last Admin: 08/29/19 21:05 Dose: 50 ml Documented by: Physical Examination - Physical Exam Narrative exam: Physical Exam: reviewed ED and hospitalist notes, limited due to conservation of PPE General appearance: limited due to conservation of PPE Eyes: limited due to conservation of PPE HENT: Atraumatic; limited due to conservation of PPE Lungs: limited due to conservation of PPE CV: limited due to conservation of PPE Abdomen: limited due to conservation of PPE Extremities: limited due to conservation of PPE Skin: limited due to conservation of PPE Psych: limited due to conservation of PPE Neuro: limited due to conservation of PPE - Constitutional Vitals: Vital Signs Temp Pulse Resp BP Pulse Ox 97.4 F L 79 20 149/92 96 08/30/19 05:33 08/30/19 05:33 08/30/19 05:33 08/30/19 05:33 08/30/19 05:33 Temperature -Last 24 Hours Temperature 97.4 F Temperature 98.1 F Temperature 98.5 F Results - Labs CBC & Chem 7: 08/27/19 05:09 08/27/19 05:09 Assessment and Plan Cultures: Blood culture Assessment: 39-year-old male with history of obesity, admitted on 08/26/2019 due to 10-day history of shortness of breath or cough associated with low-grade fever at home: #Severe sepsis: likely due to bilateral pneumonia. #Severe COVID pneumonia: Patient presented with 10-day history of symptoms, c hest x-ray with diffuse bilateral infiltrates. Admission O2 sats 88 on room air. Inflammatory markers are elevated -ferritin 1959, LDH 740, DDimer 504, CRP 25. Suspect cytokine release syndrome, patient is at risk for venous thromboembolism +/- microangiopathy with alveolar capillary microthrombi/. Status post Tocilizumab, on remdesivir and on IV steroids. #Acute hypoxemic respiratory failure: Currently on 4 L nasal cannula oxygen sats 96% Recommendations: continue Dexamethasone 6 mg IV/PO daily for 10 days continue Remdesivir 200 mg IV q day x 1 day followed by 100 mg IV q day x 4 days Patient may benefit from COVID convalescent plasma, please order plasma and obtain consent. Type and cross ordered. Obtain daily inflammatory markers - ferritin, Ddimer, CRP, LDH Consider prophylactic anticoagulation Obtain IL-6 level High risk mortality due to severe COVID-19 infection and comorbidities. Will follow Shital Carrera MD Infectious Diseases [employer] [facility] M [phone] O [phone]
[2019-08-30] MEDS: REMDESIVIR 100 MG in SODIUM CHLORIDE 0.9% 250ML 250 ML IV SCH (21:58)
[2019-08-30] MEDS: ENOXAPARIN 40 MG/0.4 ML INJ SUB-Q SCH (21:59)
[2019-08-30] MEDS: SODIUM CHLORIDE 0.9% 50 ML IVPB IV SCH (21:59)
--- NOTE | 2019-08-31 07:43 | Progress Note ---
Assessment and Plan Assessment and plan: 39-year-old male with no significant past medical history presenting to the emergency room today complaining of shortness of breath or cough which has been ongoing for about 10 to 11 days. Cough has been nonproductive. He has had some low-grade fever at home. He denies any chest pain. No nausea vomiting, no diarrhea, no abdominal pain, no hematuria or dysuria, no headache or dizziness. Patient denies any sick contacts and no recent recent travel. Denies contact with anyone with COVID-19. Patient indicates that he was tested for COVID 19 about 5 days ago however he has not received the results. Upon arrival in the emergency room patient was found to be hypoxic with O2 saturation of about 88 on room air. Patient was placed on oxygen with improvement in his oxygen saturation. Chest x-ray done was consistent with possible pneumonia. Patient has been placed on isolation precautions for COVID-19. Lab results reviewed Brief ID note reviewed Remdesivir x 5 days and Actemra 1 dose Procalcitonin is normal Discontinue IV antibiotics 08/26 Patient is awake alert and oriented, [id number] Mildly short of breath and has mild cough History is limited He is on nonrebreather mask COVID-19 test result is positive 08/28 Patient is alert and oriented He is still on nonrebreather mask Overall feels better and less dyspneic Denies any chest pain, cough or fever Discussed with respiratory therapist to see if he can come off the nonrebreather mask to nasal cannula Lab results reviewed 08/29: Continue current therapy patient still hypoxic. Continue oxygen management. Will obtain pulmonary consult due to hypoxia. Continue to encourage prone positioning. Wean oxygen as tolerated. Continue steroid therapy 08/30: We will wean oxygen further today. consent obtained for convalescent plasma therapy Assessment Bilateral pneumonia 2/2 Severe sepsis secondary to COVID-19 COVID-19 pneumonia Acute hypoxic respiratory failure continue oxygen via nonrebreather mask DVT prophylaxis Continue Lovenox History Interval history: Patient seen and examined today resting comfortably. Discussed with graining operator. Concerned about his health. Still with mild shortness of breath. Hospitalist Physical - Physical exam Narrative exam: VITAL SIGNS: Reviewed. GENERAL: The patient appears normally developed, intermittent cough during exam vital signs as documented. HEAD: No signs of head trauma. EYES: Pupils are equal. Extraocular motions intact. EARS: Hearing grossly intact. MOUTH: Oropharynx is normal. NECK: No adenopathy, no JVD. CHEST: Chest with clear breath sounds bilaterally. No wheezes, rales, or rhonchi. CARDIAC: Regular rate and rhythm. S1 and S2, without murmurs, gallops, or rubs. VASCULAR: No Edema. Peripheral pulses normal and equal in all extremities. ABDOMEN: Soft, non tender and non distended. No rebound or guarding, and no masses palpated. Bowel Sounds normal. MUSCULOSKELETAL: Good range of motion of all major joints. Extremities without clubbing, cyanosis or edema. NEUROLOGIC EXAM: Alert and oriented x 3 No focal sensory or strength deficits. Speech normal. Follows commands. PSYCHIATRIC: Mood normal. SKIN: detial exam as documented in skin assessment - Constitutional Vitals: Temp Pulse Resp BP Pulse Ox 97.6 F 76 18 112/77 97 08/31/19 04:41 08/31/19 04:41 08/31/19 04:41 08/31/19 04:41 08/31/19 04:41 General appearance: Present: mild distress HEART Score - HEART Score Troponin: Troponin T 0.032 ng/mL (0.00-0.029) H 08/26/19 19:38 Results - Labs CBC & Chem 7: 08/27/19 05:09 08/27/19 05:09 Labs: Laboratory Last Values WBC 9.6 K/mm3 (4.5-11.0) 08/27/19 05:09 RBC 4.68 M/mm3 (3.65-5.03) 08/27/19 05:09 Hgb 15.1 gm/dl (11.8-15.2) 08/27/19 05:09 Hct 44.8 % (35.5-45.6) 08/27/19 05:09 MCV 96 fl (84-94) H 08/27/19 05:09 MCH 32 pg (28-32) 08/27/19 05:09 MCHC 34 % (32-34) 08/27/19 05:09 RDW 13.1 % (13.2-15.2) L 08/27/19 05:09 Plt Count 213 K/mm3 (140-440) 08/27/19 05:09 Add Manual Diff Complete 08/27/19 05:09 Total Counted 100 08/27/19 05:09 Seg Neutrophils % Parts Sales Advisor 08/27/19 05:09 Seg Neuts % (Manual) 94.0 % (40.0-70.0) H 08/27/19 05:09 Band Neutrophils % 1.0 % 08/27/19 05:09 Lymphocytes % (Manual) 3.0 % (13.4-35.0) L 08/27/19 05:09 Reactive Lymphs % (Man) 0 % 08/27/19 05:09 Monocytes % (Manual) 2.0 % (0.0-7.3) 08/27/19 05:09 Eosinophils % (Manual) 0 % (0.0-4.3) 08/27/19 05:09 Basophils % (Manual) 0 % (0.0-1.8) 08/27/19 05:09 Metamyelocytes % 0 % 08/27/19 05:09 Myelocytes % 0 % 08/27/19 05:09 Promyelocytes % 0 % 08/27/19 05:09 Blast Cells % 0 % 08/27/19 05:09 Nucleated RBC % Not Reportable 08/27/19 05:09 Seg Neutrophils # Man 9.0 K/mm3 (1.8-7.7) H 08/27/19 05:09 Band Neutrophils # 0.1 K/mm3 08/27/19 05:09 Lymphocytes # (Manual) 0.3 K/mm3 (1.2-5.4) L 08/27/19 05:09 Abs React Lymphs (Man) 0.0 K/mm3 08/27/19 05:09 Monocytes # (Manual) 0.2 K/mm3 (0.0-0.8) 08/27/19 05:09 Eosinophils # (Manual) 0.0 K/mm3 (0.0-0.4) 08/27/19 05:09 Basophils # (Manual) 0.0 K/mm3 (0.0-0.1) 08/27/19 05:09 Metamyelocytes # 0.0 K/mm3 08/27/19 05:09 Myelocytes # 0.0 K/mm3 08/27/19 05:09 Promyelocytes # 0.0 K/mm3 08/27/19 05:09 Blast Cells # 0.0 K/mm3 08/27/19 05:09 WBC Morphology Not Reportable 08/27/19 05:09 Hypersegmented Neuts Not Reportable 08/27/19 05:09 Hyposegmented Neuts Not Reportable 08/27/19 05:09 Hypogranular Neuts Not Reportable 08/27/19 05:09 Smudge Cells Not Reportable 08/27/19 05:09 Toxic Granulation Not Reportable 08/27/19 05:09 Toxic Vacuolation Not Reportable 08/27/19 05:09 Dohle Bodies Not Reportable 08/27/19 05:09 Pelger-Huet Anomaly Not Reportable 08/27/19 05:09 Deepak Rods Not Reportable 08/27/19 05:09 Platelet Estimate Consistent w auto 08/27/19 05:09 Clumped Platelets Not Reportable 08/27/19 05:09 Plt Clumps, EDTA Not Reportable 08/27/19 05:09 Large Platelets Not Reportable 08/27/19 05:09 Giant Platelets Not Reportable 08/27/19 05:09 Platelet Satelliting Not Reportable 08/27/19 05:09 Plt Morphology Comment Not Reportable 08/27/19 05:09 RBC Morphology Normal 08/27/19 05:09 Dimorphic RBCs Not Reportable 08/27/19 05:09 Polychromasia Not Reportable 08/27/19 05:09 Hypochromasia Not Reportable 08/27/19 05:09 Poikilocytosis Not Reportable 08/27/19 05:09 Anisocytosis Not Reportable 08/27/19 05:09 Microcytosis Not Reportable 08/27/19 05:09 Macrocytosis Not Reportable 08/27/19 05:09 Spherocytes Not Reportable 08/27/19 05:09 Pappenheimer Bodies Not Reportable 08/27/19 05:09 Sickle Cells Not Reportable 08/27/19 05:09 Target Cells Not Reportable 08/27/19 05:09 Tear Drop Cells Not Reportable 08/27/19 05:09 Ovalocytes Not Reportable 08/27/19 05:09 Helmet Cells Not Reportable 08/27/19 05:09 [place] Bodies Not Reportable 08/27/19 05:09 [place] Rings Not Reportable 08/27/19 05:09 [place] Cells Not Reportable 08/27/19 05:09 Bite Cells Not Reportable 08/27/19 05:09 Crenated Cell Not Reportable 08/27/19 05:09 Elliptocytes Not Reportable 08/27/19 05:09 Acanthocytes (Spur) Not Reportable 08/27/19 05:09 Rouleaux Not Reportable 08/27/19 05:09 Hemoglobin C Crystals Not Reportable 08/27/19 05:09 Schistocytes Not Reportable 08/27/19 05:09 Malaria parasites Not Reportable 08/27/19 05:09 [place] Bodies Not Reportable 08/27/19 05:09 Hem Pathologist Commnt No 08/27/19 05:09 PT 13.1 Sec. (12.2-14.9) 08/27/19 05:09 INR 1.01 (0.87-1.13) 08/27/19 05:09 D-Dimer 669.92 ng/mlDDU (0-234) H 08/29/19 06:03 Sodium 142 mmol/L (137-145) 08/27/19 05:09 Potassium 4.1 mmol/L (3.6-5.0) 08/27/19 05:09 Chloride 104.4 mmol/L (98-107) 08/27/19 05:09 Carbon Dioxide 24 mmol/L (22-30) 08/27/19 05:09 Anion Gap 18 mmol/L 08/27/19 05:09 BUN 11 mg/dL (9-20) 08/27/19 05:09 Creatinine 0.5 mg/dL (0.8-1.5) L 08/27/19 05:09 Estimated GFR > 60 ml/min 08/27/19 05:09 BUN/Creatinine Ratio 22 % 08/27/19 05:09 Glucose 125 mg/dL (75-100) H 08/27/19 05:09 Lactic Acid 1.70 mmol/L (0.7-2.0) 08/27/19 01:14 Calcium 8.3 mg/dL (8.4-10.2) L 08/27/19 05:09 Ferritin 1400.0 ng/mL (13.0-400.0) H 08/29/19 06:03 Total Bilirubin 0.60 mg/dL (0.1-1.2) 08/26/19 19:38 AST 46 units/L (5-40) H 08/26/19 19:38 ALT 58 units/L (7-56) H 08/26/19 19:38 Alkaline Phosphatase 56 units/L (35-129) 08/26/19 19:38 Lactate Dehydrogenase 534 units/L (91-180) H 08/29/19 06:03 Troponin T 0.032 ng/mL (0.00-0.029) H 08/26/19 19:38 C-Reactive Protein 25.00 mg/dL (0.00-1.30) H 08/26/19 19:38 NT-Pro-B Natriuret Pep 616.8 pg/mL (0-450) H 08/26/19 19:38 Total Protein 7.1 g/dL (6.3-8.2) 08/26/19 19:38 Albumin 3.4 g/dL (3.9-5) L 08/26/19 19:38 Albumin/Globulin Ratio 0.9 % 08/26/19 19:38 Triglycerides 134 mg/dL (2-149) 08/26/19 19:38 Cholesterol 121 mg/dL (50-199) 08/26/19 19:38 LDL Cholesterol Direct 76 mg/dL (50-130) 08/26/19 19:38 HDL Cholesterol 29 mg/dL (40-59) L 08/26/19 19:38 Cholesterol/HDL Ratio 4.17 % 08/26/19 19:38 Procalcitonin 0.43 ng/mL (<0.15) 08/26/19 19:38 Urine Color Yellow (Yellow) 08/26/19 Unknown Urine Turbidity Clear (Clear) 08/26/19 Unknown Urine pH 6.0 (5.0-7.0) 08/26/19 Unknown Ur Specific [place] 1.019 (1.003-1.030) 08/26/19 Unknown Urine Protein 30 mg/dl mg/dL (Negative) 08/26/19 Unknown Urine Glucose (UA) Neg mg/dL (Negative) 08/26/19 Unknown Urine Ketones 20 mg/dL (Negative) 08/26/19 Unknown Urine Blood Neg (Negative) 08/26/19 Unknown Urine Nitrite Neg (Negative) 08/26/19 Unknown Urine Bilirubin Neg (Negative) 08/26/19 Unknown Urine Urobilinogen 4.0 mg/dL (<2.0) 08/26/19 Unknown Ur Leukocyte Esterase Neg (Negative) 08/26/19 Unknown Urine WBC (Auto) 1.0 /HPF (0.0-6.0) 08/26/19 Unknown Urine RBC (Auto) 2.0 /HPF (0.0-6.0) 08/26/19 Unknown Urine Mucus Few /HPF 08/26/19 Unknown Coronavirus (PCR) Positive (Negative) A 08/26/19 Unknown Blood Type B NEGATIVE 08/30/19 14:01 Antibody Screen Negative 08/30/19 14:01 Microbiology: Microbiology 08/26/19 19:44 Peripheral/Venous Blood Culture - Preliminary NO GROWTH AFTER 4 DAYS 08/26/19 19:38 Peripheral/Venous Blood Culture - Preliminary NO GROWTH AFTER 4 DAYS [place]/IV: Voiding Method Toilet IV Catheter Type [Right INT / Saline Lock Antecubital] Active Medications - Current Medications Current Medications: Generic Name Dose Route Start Last Admin Trade Name Freq PRN Reason Stop Dose Admin Acetaminophen 650 mg 08/26/19 23:20 Tylenol PO Q4H PRN Pain MILD(1-3)/Fever >100.5/VELASQUEZ Dexamethasone 6 mg 08/27/19 10:00 08/30/19 10:57 Decadron PO 09/04/19 10:01 6 mg DAILY KAREEM Administration Enoxaparin Sodium 40 mg 08/27/19 22:00 08/30/19 21:59 Enoxaparin SUB-Q 40 mg QDAY@2200 KAREEM Administration REMDESIVIR 100 mg/ Sodium 250 mls @ 500 mls/hr 08/29/19 21:00 08/30/19 21:58 Chloride IV 09/01/19 21:29 500 mls/hr Q24HR@2100 KAREEM Administration Magnesium Hydroxide 30 ml 08/26/19 23:20 Milk Of Magnesia PO Q4H PRN Constipation Ondansetron HCl 4 mg 08/26/19 23:20 Zofran IV Q8H PRN Nausea And Vomiting Sodium Chloride 10 ml 08/27/19 10:00 08/30/19 21:59 Sodium Chloride Flush Syringe 10 Ml IV 10 ml BID KAREEM Administration Sodium Chloride 10 ml 08/26/19 23:20 Sodium Chloride Flush Syringe 10 Ml IV PRN PRN LINE FLUSH Sodium Chloride 50 ml 08/28/19 21:00 08/30/19 21:59 Nacl 0.9% IV 08/31/19 21:01 50 ml Q24H KAREEM Administration
[2019-08-31] MEDS: DEXAMETHASONE 4 MG TAB PO SCH (09:46)
--- NOTE | 2019-08-31 13:58 | Consultation ---
History of Present Illness Consult date: 08/31/19 Requesting physician: PIERO HASKINS Reason for consult: other (Acutye Hypoxemic Respiratory Failure) History of present illness: PULMONARY/CCM CONSULT NOTE (Full dictation # [id number]) Please see dictated notes for full details Past History Past Medical History: No medical history Past Surgical History: No surgical history Social history: no significant social history Family history: no significant family history Medications and Allergies Allergies Allergy/AdvReac Type Severity Reaction Status Date / Time No Known Allergies Allergy Verified 08/26/19 19:27 Active Meds: Active Medications Acetaminophen (Tylenol) 650 mg PO Q4H PRN PRN Reason: Pain MILD(1-3)/Fever >100.5/VELASQUEZ Dexamethasone (Decadron) 6 mg PO DAILY [facility] Stop: 09/04/19 10:01 Last Admin: 08/31/19 09:46 Dose: 6 mg Documented by: Enoxaparin Sodium (Enoxaparin) 40 mg SUB-Q QDAY@2200 [facility] Last Admin: 08/30/19 21:59 Dose: 40 mg Documented by: REMDESIVIR 100 mg/ Sodium (Chloride) 250 mls @ 500 mls/hr IV Q24HR@2100 [facility] Stop: 09/01/19 21:29 Last Admin: 08/30/19 21:58 Dose: 500 mls/hr Documented by: Magnesium Hydroxide (Milk Of Magnesia) 30 ml PO Q4H PRN PRN Reason: Constipation Ondansetron HCl (Zofran) 4 mg IV Q8H PRN PRN Reason: Nausea And Vomiting Sodium Chloride (Sodium Chloride Flush Syringe 10 Ml) 10 ml IV BID [facility] Last Admin: 08/30/19 21:59 Dose: 10 ml Documented by: Sodium Chloride (Sodium Chloride Flush Syringe 10 Ml) 10 ml IV PRN PRN PRN Reason: LINE FLUSH Sodium Chloride (Nacl 0.9%) 50 ml IV Q24H [facility] Stop: 08/31/19 21:01 Last Admin: 08/30/19 21:59 Dose: 50 ml Documented by: Physical Examination Vital signs: Vital Signs Temp Pulse Resp BP Pulse Ox 102.9 F H 122 H 16 130/82 88 08/26/19 19:25 08/26/19 19:25 08/26/19 19:25 08/26/19 19:25 08/26/19 19:25 Results - Laboratory Findings CBC and BMP: 08/27/19 05:09 08/27/19 05:09 PT/INR, D-dimer PT 13.1 Sec. (12.2-14.9) 08/27/19 05:09 INR 1.01 (0.87-1.13) 08/27/19 05:09 D-Dimer 669.92 ng/mlDDU (0-234) H 08/29/19 06:03 Abnormal lab findings: Abnormal Labs 08/26/19 08/26/19 08/26/19 19:38 19:38 19:38 WBC 12.2 H Hgb 15.3 H MCV 95 H RDW 12.6 L Seg Neuts % (Manual) 88.0 H Lymphocytes % (Manual) 7.0 L Seg Neutrophils # Man 10.7 H Lymphocytes # (Manual) 0.9 L D-Dimer Sodium 136 L Chloride 97.1 L Creatinine 0.6 L Glucose 117 H Lactic Acid 2.30 H* Calcium Ferritin AST 46 H ALT 58 H Lactate Dehydrogenase Troponin T 0.032 H C-Reactive Protein NT-Pro-B Natriuret Pep Albumin 3.4 L HDL Cholesterol 29 L Coronavirus (PCR) 08/26/19 08/26/19 08/26/19 19:38 19:38 19:38 WBC Hgb MCV RDW Seg Neuts % (Manual) Lymphocytes % (Manual) Seg Neutrophils # Man Lymphocytes # (Manual) D-Dimer 504.52 H Sodium Chloride Creatinine Glucose 116 H Lactic Acid Calcium Ferritin 1959.0 H AST ALT Lactate Dehydrogenase 740 H Troponin T C-Reactive Protein 25.00 H NT-Pro-B Natriuret Pep Albumin HDL Cholesterol Coronavirus (PCR) 08/26/19 08/26/19 08/27/19 19:38 Unknown 05:09 WBC Hgb MCV 96 H RDW 13.1 L Seg Neuts % (Manual) 94.0 H Lymphocytes % (Manual) 3.0 L Seg Neutrophils # Man 9.0 H Lymphocytes # (Manual) 0.3 L D-Dimer Sodium Chloride Creatinine Glucose Lactic Acid Calcium Ferritin AST ALT Lactate Dehydrogenase Troponin T C-Reactive Protein NT-Pro-B Natriuret Pep 616.8 H Albumin HDL Cholesterol Coronavirus (PCR) Positive A 08/27/19 08/29/19 08/29/19 05:09 06:03 06:03 WBC Hgb MCV RDW Seg Neuts % (Manual) Lymphocytes % (Manual) Seg Neutrophils # Man Lymphocytes # (Manual) D-Dimer 669.92 H Sodium Chloride Creatinine 0.5 L Glucose 125 H Lactic Acid Calcium 8.3 L Ferritin 1400.0 H AST ALT Lactate Dehydrogenase Troponin T C-Reactive Protein NT-Pro-B Natriuret Pep Albumin HDL Cholesterol Coronavirus (PCR) 08/29/19 06:03 WBC Hgb MCV RDW Seg Neuts % (Manual) Lymphocytes % (Manual) Seg Neutrophils # Man Lymphocytes # (Manual) D-Dimer Sodium Chloride Creatinine Glucose Lactic Acid Calcium Ferritin AST ALT Lactate Dehydrogenase 534 H Troponin T C-Reactive Protein NT-Pro-B Natriuret Pep Albumin HDL Cholesterol Coronavirus (PCR)
[2019-08-31] MEDS: ENOXAPARIN 40 MG/0.4 ML INJ SUB-Q SCH (21:43)
[2019-08-31] MEDS: REMDESIVIR 100 MG in SODIUM CHLORIDE 0.9% 250ML 250 ML IV SCH (21:44)
[2019-08-31] MEDS: SODIUM CHLORIDE 0.9% 50 ML IVPB IV SCH (21:44)
--- NOTE | 2019-09-01 07:53 | Progress Note ---
Assessment and Plan Assessment and plan: 39-year-old male with no significant past medical history presenting to the emergency room today complaining of shortness of breath or cough which has been ongoing for about 10 to 11 days. Cough has been nonproductive. He has had some low-grade fever at home. He denies any chest pain. No nausea vomiting, no diarrhea, no abdominal pain, no hematuria or dysuria, no headache or dizziness. Patient denies any sick contacts and no recent recent travel. Denies contact with anyone with COVID-19. Patient indicates that he was tested for COVID 19 about 5 days ago however he has not received the results. Upon arrival in the emergency room patient was found to be hypoxic with O2 saturation of about 88 on room air. Patient was placed on oxygen with improvement in his oxygen saturation. Chest x-ray done was consistent with possible pneumonia. Patient has been placed on isolation precautions for COVID-19. Lab results reviewed Brief ID note reviewed Remdesivir x 5 days and Actemra 1 dose Procalcitonin is normal Discontinue IV antibiotics 08/26 Patient is awake alert and oriented, [id number] Mildly short of breath and has mild cough History is limited He is on nonrebreather mask COVID-19 test result is positive 08/28 Patient is alert and oriented He is still on nonrebreather mask Overall feels better and less dyspneic Denies any chest pain, cough or fever Discussed with respiratory therapist to see if he can come off the nonrebreather mask to nasal cannula Lab results reviewed 08/29: Continue current therapy patient still hypoxic. Continue oxygen management. Will obtain pulmonary consult due to hypoxia. Continue to encourage prone positioning. Wean oxygen as tolerated. Continue steroid therapy 08/30: We will wean oxygen further today. consent obtained for convalescent plasma therapy 08/31: Patient Code: [id number] FOR [facility] THERAPY, INFORMATION SENT TO BLOOD BANK Otherwise continue current therapy. Continue to wean oxygen plan discussed with the patient detail. Assessment Bilateral pneumonia 2/2 Severe sepsis secondary to COVID-19 COVID-19 pneumonia Acute hypoxic respiratory failure continue oxygen via nonrebreather mask DVT prophylaxis Continue Lovenox History Interval history: Patient seen and examined today resting comfortably. Discussed with medical laboratory manager. Concerned about his health. Still with mild shortness of breath. Hospitalist Physical - Physical exam Narrative exam: VITAL SIGNS: Reviewed. GENERAL: The patient appears normally developed, intermittent cough during exam vital signs as documented. HEAD: No signs of head trauma. EYES: Pupils are equal. Extraocular motions intact. EARS: Hearing grossly intact. MOUTH: Oropharynx is normal. NECK: No adenopathy, no JVD. CHEST: Chest with clear breath sounds bilaterally. No wheezes, rales, or rhonchi. CARDIAC: Regular rate and rhythm. S1 and S2, without murmurs, gallops, or rubs. VASCULAR: No Edema. Peripheral pulses normal and equal in all extremities. ABDOMEN: Soft, non tender and non distended. No rebound or guarding, and no masses palpated. Bowel Sounds normal. MUSCULOSKELETAL: Good range of motion of all major joints. Extremities without clubbing, cyanosis or edema. NEUROLOGIC EXAM: Alert and oriented x 3 No focal sensory or strength deficits. Speech normal. Follows commands. PSYCHIATRIC: Mood normal. SKIN: detial exam as documented in skin assessment - Constitutional Vitals: Temp Pulse Resp BP Pulse Ox 97.7 F 67 18 105/52 99 09/01/19 04:54 09/01/19 04:54 09/01/19 04:54 09/01/19 04:54 09/01/19 04:54 General appearance: Present: mild distress HEART Score - HEART Score Troponin: Troponin T 0.032 ng/mL (0.00-0.029) H 08/26/19 19:38 Results - Labs CBC & Chem 7: 08/27/19 05:09 08/27/19 05:09 Labs: Laboratory Last Values WBC 9.6 K/mm3 (4.5-11.0) 08/27/19 05:09 RBC 4.68 M/mm3 (3.65-5.03) 08/27/19 05:09 Hgb 15.1 gm/dl (11.8-15.2) 08/27/19 05:09 Hct 44.8 % (35.5-45.6) 08/27/19 05:09 MCV 96 fl (84-94) H 08/27/19 05:09 MCH 32 pg (28-32) 08/27/19 05:09 MCHC 34 % (32-34) 08/27/19 05:09 RDW 13.1 % (13.2-15.2) L 08/27/19 05:09 Plt Count 213 K/mm3 (140-440) 08/27/19 05:09 Add Manual Diff Complete 08/27/19 05:09 Total Counted 100 08/27/19 05:09 Seg Neutrophils % Director Of Occupational Therapy 08/27/19 05:09 Seg Neuts % (Manual) 94.0 % (40.0-70.0) H 08/27/19 05:09 Band Neutrophils % 1.0 % 08/27/19 05:09 Lymphocytes % (Manual) 3.0 % (13.4-35.0) L 08/27/19 05:09 Reactive Lymphs % (Man) 0 % 08/27/19 05:09 Monocytes % (Manual) 2.0 % (0.0-7.3) 08/27/19 05:09 Eosinophils % (Manual) 0 % (0.0-4.3) 08/27/19 05:09 Basophils % (Manual) 0 % (0.0-1.8) 08/27/19 05:09 Metamyelocytes % 0 % 08/27/19 05:09 Myelocytes % 0 % 08/27/19 05:09 Promyelocytes % 0 % 08/27/19 05:09 Blast Cells % 0 % 08/27/19 05:09 Nucleated RBC % Not Reportable 08/27/19 05:09 Seg Neutrophils # Man 9.0 K/mm3 (1.8-7.7) H 08/27/19 05:09 Band Neutrophils # 0.1 K/mm3 08/27/19 05:09 Lymphocytes # (Manual) 0.3 K/mm3 (1.2-5.4) L 08/27/19 05:09 Abs React Lymphs (Man) 0.0 K/mm3 08/27/19 05:09 Monocytes # (Manual) 0.2 K/mm3 (0.0-0.8) 08/27/19 05:09 Eosinophils # (Manual) 0.0 K/mm3 (0.0-0.4) 08/27/19 05:09 Basophils # (Manual) 0.0 K/mm3 (0.0-0.1) 08/27/19 05:09 Metamyelocytes # 0.0 K/mm3 08/27/19 05:09 Myelocytes # 0.0 K/mm3 08/27/19 05:09 Promyelocytes # 0.0 K/mm3 08/27/19 05:09 Blast Cells # 0.0 K/mm3 08/27/19 05:09 WBC Morphology Not Reportable 08/27/19 05:09 Hypersegmented Neuts Not Reportable 08/27/19 05:09 Hyposegmented Neuts Not Reportable 08/27/19 05:09 Hypogranular Neuts Not Reportable 08/27/19 05:09 Smudge Cells Not Reportable 08/27/19 05:09 Toxic Granulation Not Reportable 08/27/19 05:09 Toxic Vacuolation Not Reportable 08/27/19 05:09 Dohle Bodies Not Reportable 08/27/19 05:09 Pelger-Huet Anomaly Not Reportable 08/27/19 05:09 Deepak Rods Not Reportable 08/27/19 05:09 Platelet Estimate Consistent w auto 08/27/19 05:09 Clumped Platelets Not Reportable 08/27/19 05:09 Plt Clumps, EDTA Not Reportable 08/27/19 05:09 Large Platelets Not Reportable 08/27/19 05:09 Giant Platelets Not Reportable 08/27/19 05:09 Platelet Satelliting Not Reportable 08/27/19 05:09 Plt Morphology Comment Not Reportable 08/27/19 05:09 RBC Morphology Normal 08/27/19 05:09 Dimorphic RBCs Not Reportable 08/27/19 05:09 Polychromasia Not Reportable 08/27/19 05:09 Hypochromasia Not Reportable 08/27/19 05:09 Poikilocytosis Not Reportable 08/27/19 05:09 Anisocytosis Not Reportable 08/27/19 05:09 Microcytosis Not Reportable 08/27/19 05:09 Macrocytosis Not Reportable 08/27/19 05:09 Spherocytes Not Reportable 08/27/19 05:09 Pappenheimer Bodies Not Reportable 08/27/19 05:09 Sickle Cells Not Reportable 08/27/19 05:09 Target Cells Not Reportable 08/27/19 05:09 Tear Drop Cells Not Reportable 08/27/19 05:09 Ovalocytes Not Reportable 08/27/19 05:09 Helmet Cells Not Reportable 08/27/19 05:09 Werner-Buchtel Bodies Not Reportable 08/27/19 05:09 [place] Rings Not Reportable 08/27/19 05:09 [place] Cells Not Reportable 08/27/19 05:09 Bite Cells Not Reportable 08/27/19 05:09 Crenated Cell Not Reportable 08/27/19 05:09 Elliptocytes Not Reportable 08/27/19 05:09 Acanthocytes (Spur) Not Reportable 08/27/19 05:09 Rouleaux Not Reportable 08/27/19 05:09 Hemoglobin C Crystals Not Reportable 08/27/19 05:09 Schistocytes Not Reportable 08/27/19 05:09 Malaria parasites Not Reportable 08/27/19 05:09 [place] Bodies Not Reportable 08/27/19 05:09 Hem Pathologist Commnt No 08/27/19 05:09 PT 13.1 Sec. (12.2-14.9) 08/27/19 05:09 INR 1.01 (0.87-1.13) 08/27/19 05:09 D-Dimer 669.92 ng/mlDDU (0-234) H 08/29/19 06:03 Sodium 142 mmol/L (137-145) 08/27/19 05:09 Potassium 4.1 mmol/L (3.6-5.0) 08/27/19 05:09 Chloride 104.4 mmol/L (98-107) 08/27/19 05:09 Carbon Dioxide 24 mmol/L (22-30) 08/27/19 05:09 Anion Gap 18 mmol/L 08/27/19 05:09 BUN 11 mg/dL (9-20) 08/27/19 05:09 Creatinine 0.5 mg/dL (0.8-1.5) L 08/27/19 05:09 Estimated GFR > 60 ml/min 08/27/19 05:09 BUN/Creatinine Ratio 22 % 08/27/19 05:09 Glucose 125 mg/dL (75-100) H 08/27/19 05:09 Lactic Acid 1.70 mmol/L (0.7-2.0) 08/27/19 01:14 Calcium 8.3 mg/dL (8.4-10.2) L 08/27/19 05:09 Magnesium 2.30 mg/dL (1.7-2.3) 08/31/19 06:51 Ferritin 1400.0 ng/mL (13.0-400.0) H 08/29/19 06:03 Total Bilirubin 0.60 mg/dL (0.1-1.2) 08/26/19 19:38 AST 46 units/L (5-40) H 08/26/19 19:38 ALT 58 units/L (7-56) H 08/26/19 19:38 Alkaline Phosphatase 56 units/L (35-129) 08/26/19 19:38 Lactate Dehydrogenase 534 units/L (91-180) H 08/29/19 06:03 Troponin T 0.032 ng/mL (0.00-0.029) H 08/26/19 19:38 C-Reactive Protein 25.00 mg/dL (0.00-1.30) H 08/26/19 19:38 NT-Pro-B Natriuret Pep 616.8 pg/mL (0-450) H 08/26/19 19:38 Total Protein 7.1 g/dL (6.3-8.2) 08/26/19 19:38 Albumin 3.4 g/dL (3.9-5) L 08/26/19 19:38 Albumin/Globulin Ratio 0.9 % 08/26/19 19:38 Triglycerides 134 mg/dL (2-149) 08/26/19 19:38 Cholesterol 121 mg/dL (50-199) 08/26/19 19:38 LDL Cholesterol Direct 76 mg/dL (50-130) 08/26/19 19:38 HDL Cholesterol 29 mg/dL (40-59) L 08/26/19 19:38 Cholesterol/HDL Ratio 4.17 % 08/26/19 19:38 Procalcitonin 0.43 ng/mL (<0.15) 08/26/19 19:38 Urine Color Yellow (Yellow) 08/26/19 Unknown Urine Turbidity Clear (Clear) 08/26/19 Unknown Urine pH 6.0 (5.0-7.0) 08/26/19 Unknown Ur Specific [place] 1.019 (1.003-1.030) 08/26/19 Unknown Urine Protein 30 mg/dl mg/dL (Negative) 08/26/19 Unknown Urine Glucose (UA) Neg mg/dL (Negative) 08/26/19 Unknown Urine Ketones 20 mg/dL (Negative) 08/26/19 Unknown Urine Blood Neg (Negative) 08/26/19 Unknown Urine Nitrite Neg (Negative) 08/26/19 Unknown Urine Bilirubin Neg (Negative) 08/26/19 Unknown Urine Urobilinogen 4.0 mg/dL (<2.0) 08/26/19 Unknown Ur Leukocyte Esterase Neg (Negative) 08/26/19 Unknown Urine WBC (Auto) 1.0 /HPF (0.0-6.0) 08/26/19 Unknown Urine RBC (Auto) 2.0 /HPF (0.0-6.0) 08/26/19 Unknown Urine Mucus Few /HPF 08/26/19 Unknown Coronavirus (PCR) Positive (Negative) A 08/26/19 Unknown Blood Type B NEGATIVE 08/30/19 14:01 Antibody Screen Negative 08/30/19 14:01 Microbiology: Microbiology 08/26/19 19:44 Peripheral/Venous Blood Culture - Final NO GROWTH AFTER 5 DAYS 08/26/19 19:38 Peripheral/Venous Blood Culture - Final NO GROWTH AFTER 5 DAYS [place]/IV: Voiding Method Toilet IV Catheter Type [Right INT / Saline Lock Antecubital] Active Medications - Current Medications Current Medications: Generic Name Dose Route Start Last Admin Trade Name Freq PRN Reason Stop Dose Admin Acetaminophen 650 mg 08/26/19 23:20 Tylenol PO Q4H PRN Pain MILD(1-3)/Fever >100.5/VELASQUEZ Dexamethasone 6 mg 08/27/19 10:00 08/31/19 09:46 Decadron PO 09/04/19 10:01 6 mg DAILY [facility] Administration Enoxaparin Sodium 40 mg 08/27/19 22:00 08/31/19 21:43 Enoxaparin SUB-Q 40 mg QDAY@2200 [facility] Administration REMDESIVIR 100 mg/ Sodium 250 mls @ 500 mls/hr 08/29/19 21:00 08/31/19 21:44 Chloride IV 09/01/19 21:29 500 mls/hr Q24HR@2100 [facility] Administration Magnesium Hydroxide 30 ml 08/26/19 23:20 Milk Of Magnesia PO Q4H PRN Constipation Ondansetron HCl 4 mg 08/26/19 23:20 Zofran IV Q8H PRN Nausea And Vomiting Sodium Chloride 10 ml 08/27/19 10:00 08/31/19 21:44 Sodium Chloride Flush Syringe 10 Ml IV 10 ml BID KAREEM Administration Sodium Chloride 10 ml 08/26/19 23:20 Sodium Chloride Flush Syringe 10 Ml IV PRN PRN LINE FLUSH
[2019-09-01] MEDS: DEXAMETHASONE 4 MG TAB PO SCH (09:18)
--- NOTE | 2019-09-01 14:14 | Progress Note ---
Assessment and Plan Patient alert, awake. Obese. Resting on 5 litres O2. O2 saturation 98%. Says breathing better. Patient afebrile. No leukocytosis. Chest xray done 08/26/19 reported Borderline cardiomegaly and pulmonary vascular congestion/edema. Mild right basilar subsegmental atelectasis and elevation of the right hemidiaphragm. Patient received DEMRESIVIR. Patient presently on dexamethasone, S/C Lovenox and famotidine. - Patient Problems (1) Bilateral pneumonia Current Visit: Yes Status: Acute Plan to address problem: Patient received DEMRESIVIR. Patient presently on dexamethasone, S/C Lovenox and famotidine. (2) Hypoxia Current Visit: Yes Status: Acute Plan to address problem: Patient is on 5 litres o2. O2 saturation 98%. (3) Suspected COVID-19 virus infection Current Visit: Yes Status: Acute Plan to address problem: Patient received DEMRESIVIR. Patient presently on dexamethasone, S/C Lovenox and famotidine. Subjective Date of service: 09/01/19 Interval history: Patient alert, awake. Obese. Resting on 5 litres O2. O2 saturation 98%. Says breathing better. Patient afebrile. No leukocytosis. Chest xray done 08/26/19 reported Borderline cardiomegaly and pulmonary vascular congestion/edema. Mild right basilar subsegmental atelectasis and elevation of the right he midiaphragm. Patient received DEMRESIVIR. Patient presently on dexamethasone, S/C Lovenox and famotidine. Objective Vital Signs - 12hr 09/01/19 09/01/19 09/01/19 04:54 11:55 12:12 Temperature 97.7 F 97.1 F L 98.6 F Pulse Rate 67 65 60 Respiratory 18 20 19 Rate Blood Pressure 105/52 117/71 125/82 O2 Sat by Pulse 99 97 91 Oximetry Constitutional: no acute distress, alert Eyes: non-icteric ENT: oropharynx moist Neck: supple, no lymphadenopathy Effort: normal Ascultation: Bilateral: rhonchi Cardiovascular: regular rate and rhythm Gastrointestinal: normoactive bowel sounds, soft, non-tender Integumentary: normal Extremities: no cyanosis, no edema Neurologic: normal mental status, non-focal exam, pupils equal and round, CN II- XII normal Psychiatric: mood appropriate CBC and BMP: 08/27/19 05:09 08/27/19 05:09 ABG, PT/INR, D-dimer: PT/INR, D-dimer PT 13.1 Sec. (12.2-14.9) 08/27/19 05:09 INR 1.01 (0.87-1.13) 08/27/19 05:09 D-Dimer 669.92 ng/mlDDU (0-234) H 08/29/19 06:03 Abnormal lab findings: Abnormal Labs 08/26/19 08/26/19 08/26/19 19:38 19:38 19:38 WBC 12.2 H Hgb 15.3 H MCV 95 H RDW 12.6 L Seg Neuts % (Manual) 88.0 H Lymphocytes % (Manual) 7.0 L Seg Neutrophils # Man 10.7 H Lymphocytes # (Manual) 0.9 L D-Dimer Sodium 136 L Chloride 97.1 L Creatinine 0.6 L Glucose 117 H Lactic Acid 2.30 H* Calcium Ferritin AST 46 H ALT 58 H Lactate Dehydrogenase Troponin T 0.032 H C-Reactive Protein NT-Pro-B Natriuret Pep Albumin 3.4 L HDL Cholesterol 29 L Coronavirus (PCR) 08/26/19 08/26/19 08/26/19 19:38 19:38 19:38 WBC Hgb MCV RDW Seg Neuts % (Manual) Lymphocytes % (Manual) Seg Neutrophils # Man Lymphocytes # (Manual) D-Dimer 504.52 H Sodium Chloride Creatinine Glucose 116 H Lactic Acid Calcium Ferritin 1959.0 H AST ALT Lactate Dehydrogenase 740 H Troponin T C-Reactive Protein 25.00 H NT-Pro-B Natriuret Pep Albumin HDL Cholesterol Coronavirus (PCR) 08/26/19 08/26/19 08/27/19 19:38 Unknown 05:09 WBC Hgb MCV 96 H RDW 13.1 L Seg Neuts % (Manual) 94.0 H Lymphocytes % (Manual) 3.0 L Seg Neutrophils # Man 9.0 H Lymphocytes # (Manual) 0.3 L D-Dimer Sodium Chloride Creatinine Glucose Lactic Acid Calcium Ferritin AST ALT Lactate Dehydrogenase Troponin T C-Reactive Protein NT-Pro-B Natriuret Pep 616.8 H Albumin HDL Cholesterol Coronavirus (PCR) Positive A 08/27/19 08/29/19 08/29/19 05:09 06:03 06:03 WBC Hgb MCV RDW Seg Neuts % (Manual) Lymphocytes % (Manual) Seg Neutrophils # Man Lymphocytes # (Manual) D-Dimer 669.92 H Sodium Chloride Creatinine 0.5 L Glucose 125 H Lactic Acid Calcium 8.3 L Ferritin 1400.0 H AST ALT Lactate Dehydrogenase Troponin T C-Reactive Protein NT-Pro-B Natriuret Pep Albumin HDL Cholesterol Coronavirus (PCR) 08/29/19 06:03 WBC Hgb MCV RDW Seg Neuts % (Manual) Lymphocytes % (Manual) Seg Neutrophils # Man Lymphocytes # (Manual) D-Dimer Sodium Chloride Creatinine Glucose Lactic Acid Calcium Ferritin AST ALT Lactate Dehydrogenase 534 H Troponin T C-Reactive Protein NT-Pro-B Natriuret Pep Albumin HDL Cholesterol Coronavirus (PCR) Chest x-ray: report reviewed, image reviewed Additional Studies: CHEST 1 VIEW 7:53 PM 08/26/19 INDICATION / CLINICAL INFORMATION: Difficulty breathing, cough and low O2 sats. COMPARISON: None available. FINDINGS: SUPPORT DEVICES: None. HEART / MEDIASTINUM: There is borderline cardiomegaly and prominence of the central pulmonary vessels. LUNGS / PLEURA: Interstitial lung markings are mildly increased in both perihilar regions and lower lung zones. There is minimal subsegmental parenchymal disease in the right lung base. No pneumothorax. ADDITIONAL FINDINGS: The right hemidiaphragm is mildly elevated. IMPRESSION: 1. Borderline cardiomegaly and pulmonary vascular congestion/edema. 2. Mild right basilar subsegmental atelectasis and elevation of the right hemidiaphragm.
[2019-09-01] MEDS: ASCORBIC ACID 500 MG TAB PO SCH ×2 (15:42→21:00)
[2019-09-01] MEDS: FAMOTIDINE 20 MG TAB PO SCH (15:42)
[2019-09-01] MEDS: ENOXAPARIN 40 MG/0.4 ML INJ SUB-Q SCH ×2 (15:42→21:00)
[2019-09-01] MEDS: ZINC SULFATE 220 MG CAP PO SCH ×2 (15:48→21:01)
--- NOTE | 2019-09-01 16:15 | Progress Note ---
Assessment and Plan Cultures: Blood culture Assessment: 39-year-old male with history of obesity, admitted on 08/26/2019 due to 10-day history of shortness of breath or cough associated with low-grade fever at home: #Severe sepsis: likely due to bilateral pneumonia. #Severe COVID pneumonia: Patient presented with 10-day history of symptoms, chest x-ray with diffuse bilateral infiltrates. Admission O2 sats 88 on room air. Inflammatory markers are elevated -ferritin 1959, LDH 740, DDimer 504, CRP 25. Suspect cytokine release syndrome, patient is at risk for venous thromboembolism +/- microangiopathy with alveolar capillary microthrombi/. Status post Tocilizumab, on remdesivir and on IV steroids. #Acute hypoxemic respiratory failure: Currently on 4 L nasal cannula oxygen sats 96% Recommendations: continue Dexamethasone 6 mg IV/PO daily for 10 days continue Remdesivir 200 mg IV q day x 1 day followed by 100 mg IV q day x 4 days Patient may benefit from COVID convalescent plasma, please order plasma and obtain consent. Type and cross ordered. Obtain daily inflammatory markers - ferritin, Ddimer, CRP, LDH Consider prophylactic anticoagulation Follow-up IL-6 level High risk mortality due to severe COVID-19 infection and comorbidities. Will follow Yarelis Alvarado MD [facility] ([facility] M: [phone] O: [phone] F: [phone] Subjective Date of service: 09/01/19 Interval history: Afebrile, stable on nasal cannula. Objective - Exam Narrative Exam: Physical exam deferred due to PPE conservation strategy. Please refer to primary team's note. - Constitutional Vitals: Vital Signs Temp Pulse Resp BP Pulse Ox 98.6 F 60 19 125/82 91 09/01/19 12:12 09/01/19 12:12 09/01/19 12:12 09/01/19 12:12 09/01/19 12:12 Temperature -Last 24 Hours Temperature 98.6 F Temperature 97.1 F Temperature 97.7 F Temperature 97.8 F Temperature 97.7 F - Labs CBC & Chem 7: 08/27/19 05:09 08/27/19 05:09
[2019-09-01] MEDS: REMDESIVIR 100 MG in SODIUM CHLORIDE 0.9% 250ML 250 ML IV SCH (21:00)
--- NOTE | 2019-09-01 21:32 | Consultation ---
PULMONARY CONSULT NOTE CONSULTING PHYSICIAN: Willi Jackson MD REASON FOR CONSULTATION: Acute hypoxemic respiratory failure. CHIEF COMPLAINT AND HISTORY OF PRESENT ILLNESS: The patient is a 39-year-old male with past medical history of which he denies any came into the Emergency Room complaining of shortness of breath and cough, had been going on for about a couple of weeks. It was a dry cough. He had felt febrile at home. Denied chest pain. Denied hemoptysis. Denied nausea or vomiting. Denied diarrhea. Denied abdominal pain, denied dizziness. He did note some dyspnea on exertion. He denied any sick contacts. He denied travel out of the [place]. He stated that he had been tested for COVID-19 a few days prior, but did not have any results yet. In the Emergency Room, he was found to be hypoxemic, O2 sats 88% on room air and ultimately further testing revealed that he was positive for coronavirus. We are asked to assist with management. When I stopped by to see him, he was resting in bed. He remained on supplemental oxygen at the time I saw him, he was on about 5 liters nasal cannula. Again, he still denied any hemoptysis. He denied any new onset leg pain or swelling either unilaterally or bilaterally or any suggestion of a deep venous thrombosis. Of note, he denies also any history of congestive heart failure, kidney disease, diabetes. He is obese, though. That really is as much of the history of presentation as I have. PAST MEDICAL HISTORY: Denies. PAST SURGICAL HISTORY: Denies. MEDICATIONS: He was on at the time I stopped by to see him, according to the medication administration record included the following: Tylenol 650 mg p.o. q. 4 hours p.r.n. mild pain or fevers, Decadron 6 mg p.o. daily, Lovenox 40 mg subcutaneous daily, remdesivir, had just been started, Zofran 4 mg IV q. 8 hours p.r.n. nausea and vomiting. ALLERGIES: No known drug allergies. DIET: Obese gentleman. Denies acute weight loss or gain in the preceding few weeks to months. FAMILY AND SOCIAL HISTORY: Lives in the community. Denies alcohol, tobacco, or illicit drug use or abuse. FAMILY HISTORY: Otherwise, noncontributory. REVIEW OF SYSTEMS: No loss of consciousness. No new onset seizures. No new onset focal weakness. Denies gross hematochezia or melena. Denies gross hematuria or dysuria. No hematemesis. No hemoptysis. He had a dry cough. He denied any new rash on his body. He denied periods of unexplained sadness and/or elation as may be consistent with psychiatric type disorders. Complete 13-system review of systems obtained. Pertinent positives and/or negatives as in body of history above, otherwise they are noncontributory. PHYSICAL EXAMINATION: VITAL SIGNS: On examination at presentation in the Emergency Room, he had a fever of 102.9 degrees Fahrenheit, pulse was 122, respiratory rate was as high as 46, blood pressure 130/82, O2 sats were 88% on room air. GENERAL: Young male, obese, talking to me with mildly increased respiratory effort at rest. HEAD, EYES, EARS, NOSE AND THROAT: He was anicteric. No conjunctival erythema. Oropharynx was moist. Mallampati #3 oropharynx. No gross jugular venous distention, no thyromegaly. He did have a large neck circumference. Grossly, there were no palpable lymph nodes in the supraclavicular or submandibular lymph node chains. LUNGS: Auscultation of both lung nayak revealed bibasilar predominant rales, no wheezing. HEART: Heart sounds 1 and 2 are heard, regular rate and rhythm at the time of my evaluation without overt rubs or murmurs. ABDOMEN: Soft, full, bowel sounds are positive, nontender, no palpable hepatosplenomegaly. EXTREMITIES: Without overt digital clubbing or cyanosis and no pedal edema. Pedal pulses are 2+ bilaterally. NEUROLOGIC: Pupils are equal, round, about 4 mm, reactive to light. Extraocular muscle movements were intact. He moves all 4 extremities spontaneously. SKIN: Normal turgor without overt cellulitis or rash in the areas examined. PSYCHIATRIC: Mood was normal. Affect was appropriate. LABORATORY DATA: From my review are as follows: Admission white cell count was 12,200 with hemoglobin of 15.3, hematocrit of 45.4 and platelet count of 217. No band forms on the manual differential. D-dimer was elevated at 504. Serum sodium 136, potassium 4.0, chloride 97, bicarbonate 25, BUN 9, creatinine 0.6, glucose was 116. Lactic acid was 2.3, is now within normal limits. Ferritin was up at 1959. AST and ALT were slightly elevated at 46 and 58. Lactate dehydrogenase was elevated at 740. CRP up at 25. Troponin slightly elevated 0.032. BNP elevated at 617. Liver function tests otherwise within normal limits. Urinalysis was negative for nitrites and leukocyte esterase. Coronavirus PCR was positive. Two sets of blood cultures, no growth to date. Radiographic studies have been reviewed. I have also reviewed the radiologist's interpretation. He does have gross cardiomegaly, in my opinion, a globular looking hard bilateral pulmonary infiltrates consistent with interstitial edema, as well as without any pleural effusions. No gross pneumothorax, no gross bony fracture. ASSESSMENT: 1. Acute hypoxemic respiratory failure. 2. Bilateral pulmonary infiltrates, pneumonia, plus or minus pulmonary edema. 3. COVID-19 virus infection. 4. Leukocytosis, present at presentation. 5. Lactic acidosis. 6. Elevated serum inflammatory markers to include D-dimers, ferritin and CRP level. 7. Elevated BNP. 8. Obesity. 9. Coronavirus infection. PLAN: I think there may be a multifactorial etiology here, and in fact, this gentleman with enlarged heart and pulmonary infiltrates, may well also have congestive heart failure as his underlying comorbidity or risk factor for coronavirus infection. I do agree with current treatment. We will continue supplemental oxygen to keep sats greater than or equal to about 92%. We will continue with empiric community-acquired pneumonia therapy, especially with the elevated CRP level. However, the procalcitonin level is within normal limits. I do agree with remdesivir therapy as well as systemic steroids for this oxygen dependent coronavirus infection. I do feel he will benefit from a 2D echocardiogram to evaluate for congestive heart failure, pulse or minus gentle diuresis. Certainly will target conservative volume replacement therapies in this gentleman. If he decompensates further he will be placed on the high flow nasal cannula Vapotherm system. We will trend his inflammatory markers. I will be adding zinc and vitamin C supplementation. He will also be placed on GI prophylaxis as well as DVT prophylaxis in this gentleman with a procoagulable state. Depending on his progress I will decide on increasing to therapeutic dosing. Flu and pneumonia vaccination will be addressed per protocol. Thank you very much for the consult. We will follow along. I should mention he should remain in air-borne and contact isolation. JOB# [id number] RAQUEL/WILLIAM
--- NOTE | 2019-09-02 08:54 | Progress Note ---
Assessment and Plan Assessment and plan: Severe sepsis. Continue to follow-up cultures and IV antibiotics per ID recommendations. Severe COVID pneumonia. Inflammatory markers are elevated with ferritin 1959, LDH 740, d-dimer 504 and CRP 25. Patient likely with cytokine release syndrome and at high risk of venous thromboembolism and capillary microthrombi. Acute hypoxemic respiratory failure. 08/26 Patient is awake alert and oriented, [id number] Mildly short of breath and has mild cough History is limited He is on nonrebreather mask COVID-19 test result is positive 08/28 Patient is alert and oriented He is still on nonrebreather mask Overall feels better and less dyspneic Denies any chest pain, cough or fever Discussed with respiratory therapist to see if he can come off the nonrebreather mask to nasal cannula Lab results reviewed 08/29: Continue current therapy patient still hypoxic. Continue oxygen management. Will obtain pulmonary consult due to hypoxia. Continue to encourage prone positioning. Wean oxygen as tolerated. Continue steroid therapy 08/30: We will wean oxygen further today. consent obtained for convalescent plasma therapy 08/31: Patient Code: 183492 FOR [facility]AMSA THERAPY, INFORMATION SENT TO BLOOD BANK Otherwise continue current therapy. Continue to wean oxygen plan discussed with the patient detail. 09/02/2019. Continue dexamethasone 6 mg IV for 10 days, continue remdesivir IV daily, s/p Actemra. History Interval history: No new issues overnight Hospitalist Physical - Constitutional Vitals: Temp Pulse Resp BP Pulse Ox 97.5 F L 71 18 124/66 99 09/02/19 05:19 09/02/19 05:19 09/02/19 05:19 09/02/19 05:09/02/19 05:19 General appearance: Present: no acute distress - EENT Eyes: Present: PERRL, EOM intact ENT: hearing intact, clear oral mucosa, dentition normal - Neck Neck: Present: supple, normal ROM - Respiratory Respiratory effort: normal Respiratory: bilateral: CTA - Cardiovascular Rhythm: regular Heart Sounds: Present: S1 & S2. Absent: gallop, rub - Extremities Extremities: no ischemia, No edema, Full ROM - Abdominal General gastrointestinal: soft, non-tender, non-distended, normal bowel sounds - Integumentary Integumentary: Present: clear, warm, dry - Neurologic Neurologic: CNII-XII intact, moves all extremities HEART Score - HEART Score Troponin: Troponin T 0.032 ng/mL (0.00-0.029) H 08/26/19 19:38 Results - Labs CBC & Chem 7: 08/27/19 05:09 08/27/19 05:09 Labs: Laboratory Last Values WBC 9.6 K/mm3 (4.5-11.0) 08/27/19 05:09 RBC 4.68 M/mm3 (3.65-5.03) 08/27/19 05:09 Hgb 15.1 gm/dl (11.8-15.2) 08/27/19 05:09 Hct 44.8 % (35.5-45.6) 08/27/19 05:09 MCV 96 fl (84-94) H 08/27/19 05:09 MCH 32 pg (28-32) 08/27/19 05:09 MCHC 34 % (32-34) 08/27/19 05:09 RDW 13.1 % (13.2-15.2) L 08/27/19 05:09 Plt Count 213 K/mm3 (140-440) 08/27/19 05:09 Add Manual Diff Complete 08/27/19 05:09 Total Counted 100 08/27/19 05:09 Seg Neutrophils % Molder Trimmer 08/27/19 05:09 Seg Neuts % (Manual) 94.0 % (40.0-70.0) H 08/27/19 05:09 Band Neutrophils % 1.0 % 08/27/19 05:09 Lymphocytes % (Manual) 3.0 % (13.4-35.0) L 08/27/19 05:09 Reactive Lymphs % (Man) 0 % 08/27/19 05:09 Monocytes % (Manual) 2.0 % (0.0-7.3) 08/27/19 05:09 Eosinophils % (Manual) 0 % (0.0-4.3) 08/27/19 05:09 Basophils % (Manual) 0 % (0.0-1.8) 08/27/19 05:09 Metamyelocytes % 0 % 08/27/19 05:09 Myelocytes % 0 % 08/27/19 05:09 Promyelocytes % 0 % 08/27/19 05:09 Blast Cells % 0 % 08/27/19 05:09 Nucleated RBC % Not Reportable 08/27/19 05:09 Seg Neutrophils # Man 9.0 K/mm3 (1.8-7.7) H 08/27/19 05:09 Band Neutrophils # 0.1 K/mm3 08/27/19 05:09 Lymphocytes # (Manual) 0.3 K/mm3 (1.2-5.4) L 08/27/19 05:09 Abs React Lymphs (Man) 0.0 K/mm3 08/27/19 05:09 Monocytes # (Manual) 0.2 K/mm3 (0.0-0.8) 08/27/19 05:09 Eosinophils # (Manual) 0.0 K/mm3 (0.0-0.4) 08/27/19 05:09 Basophils # (Manual) 0.0 K/mm3 (0.0-0.1) 08/27/19 05:09 Metamyelocytes # 0.0 K/mm3 08/27/19 05:09 Myelocytes # 0.0 K/mm3 08/27/19 05:09 Promyelocytes # 0.0 K/mm3 08/27/19 05:09 Blast Cells # 0.0 K/mm3 08/27/19 05:09 WBC Morphology Not Reportable 08/27/19 05:09 Hypersegmented Neuts Not Reportable 08/27/19 05:09 Hyposegmented Neuts Not Reportable 08/27/19 05:09 Hypogranular Neuts Not Reportable 08/27/19 05:09 Smudge Cells Not Reportable 08/27/19 05:09 Toxic Granulation Not Reportable 08/27/19 05:09 Toxic Vacuolation Not Reportable 08/27/19 05:09 Dohle Bodies Not Reportable 08/27/19 05:09 Pelger-Huet Anomaly Not Reportable 08/27/19 05:09 Deepak Rods Not Reportable 08/27/19 05:09 Platelet Estimate Consistent w auto 08/27/19 05:09 Clumped Platelets Not Reportable 08/27/19 05:09 Plt Clumps, EDTA Not Reportable 08/27/19 05:09 Large Platelets Not Reportable 08/27/19 05:09 Giant Platelets Not Reportable 08/27/19 05:09 Platelet Satelliting Not Reportable 08/27/19 05:09 Plt Morphology Comment Not Reportable 08/27/19 05:09 RBC Morphology Normal 08/27/19 05:09 Dimorphic RBCs Not Reportable 08/27/19 05:09 Polychromasia Not Reportable 08/27/19 05:09 Hypochromasia Not Reportable 08/27/19 05:09 Poikilocytosis Not Reportable 08/27/19 05:09 Anisocytosis Not Reportable 08/27/19 05:09 Microcytosis Not Reportable 08/27/19 05:09 Macrocytosis Not Reportable 08/27/19 05:09 Spherocytes Not Reportable 08/27/19 05:09 Pappenheimer Bodies Not Reportable 08/27/19 05:09 Sickle Cells Not Reportable 08/27/19 05:09 Target Cells Not Reportable 08/27/19 05:09 Tear Drop Cells Not Reportable 08/27/19 05:09 Ovalocytes Not Reportable 08/27/19 05:09 Helmet Cells Not Reportable 08/27/19 05:09 [place] Bodies Not Reportable 08/27/19 05:09 [place] Rings Not Reportable 08/27/19 05:09 [place] Cells Not Reportable 08/27/19 05:09 Bite Cells Not Reportable 08/27/19 05:09 Crenated Cell Not Reportable 08/27/19 05:09 Elliptocytes Not Reportable 08/27/19 05:09 Acanthocytes (Spur) Not Reportable 08/27/19 05:09 Rouleaux Not Reportable 08/27/19 05:09 Hemoglobin C Crystals Not Reportable 08/27/19 05:09 Schistocytes Not Reportable 08/27/19 05:09 Malaria parasites Not Reportable 08/27/19 05:09 [place] Bodies Not Reportable 08/27/19 05:09 Hem Pathologist Commnt No 08/27/19 05:09 PT 13.1 Sec. (12.2-14.9) 08/27/19 05:09 INR 1.01 (0.87-1.13) 08/27/19 05:09 D-Dimer 669.92 ng/mlDDU (0-234) H 08/29/19 06:03 Sodium 142 mmol/L (137-145) 08/27/19 05:09 Potassium 4.1 mmol/L (3.6-5.0) 08/27/19 05:09 Chloride 104.4 mmol/L (98-107) 08/27/19 05:09 Carbon Dioxide 24 mmol/L (22-30) 08/27/19 05:09 Anion Gap 18 mmol/L 08/27/19 05:09 BUN 11 mg/dL (9-20) 08/27/19 05:09 Creatinine 0.5 mg/dL (0.8-1.5) L 08/27/19 05:09 Estimated GFR > 60 ml/min 08/27/19 05:09 BUN/Creatinine Ratio 22 % 08/27/19 05:09 Glucose 125 mg/dL (75-100) H 08/27/19 05:09 Lactic Acid 1.70 mmol/L (0.7-2.0) 08/27/19 01:14 Calcium 8.3 mg/dL (8.4-10.2) L 08/27/19 05:09 Magnesium 2.30 mg/dL (1.7-2.3) 08/31/19 06:51 Ferritin 1400.0 ng/mL (13.0-400.0) H 08/29/19 06:03 Total Bilirubin 0.60 mg/dL (0.1-1.2) 08/26/19 19:38 AST 46 units/L (5-40) H 08/26/19 19:38 ALT 58 units/L (7-56) H 08/26/19 19:38 Alkaline Phosphatase 56 units/L (35-129) 08/26/19 19:38 Lactate Dehydrogenase 534 units/L (91-180) H 08/29/19 06:03 Troponin T 0.032 ng/mL (0.00-0.029) H 08/26/19 19:38 C-Reactive Protein 25.00 mg/dL (0.00-1.30) H 08/26/19 19:38 NT-Pro-B Natriuret Pep 616.8 pg/mL (0-450) H 08/26/19 19:38 Total Protein 7.1 g/dL (6.3-8.2) 08/26/19 19:38 Albumin 3.4 g/dL (3.9-5) L 08/26/19 19:38 Albumin/Globulin Ratio 0.9 % 08/26/19 19:38 Triglycerides 134 mg/dL (2-149) 08/26/19 19:38 Cholesterol 121 mg/dL (50-199) 08/26/19 19:38 LDL Cholesterol Direct 76 mg/dL (50-130) 08/26/19 19:38 HDL Cholesterol 29 mg/dL (40-59) L 08/26/19 19:38 Cholesterol/HDL Ratio 4.17 % 08/26/19 19:38 Procalcitonin 0.43 ng/mL (<0.15) 08/26/19 19:38 Urine Color Yellow (Yellow) 08/26/19 Unknown Urine Turbidity Clear (Clear) 08/26/19 Unknown Urine pH 6.0 (5.0-7.0) 08/26/19 Unknown Ur Specific [place] 1.019 (1.003-1.030) 08/26/19 Unknown Urine Protein 30 mg/dl mg/dL (Negative) 08/26/19 Unknown Urine Glucose (UA) Neg mg/dL (Negative) 08/26/19 Unknown Urine Ketones 20 mg/dL (Negative) 08/26/19 Unknown Urine Blood Neg (Negative) 08/26/19 Unknown Urine Nitrite Neg (Negative) 08/26/19 Unknown Urine Bilirubin Neg (Negative) 08/26/19 Unknown Urine Urobilinogen 4.0 mg/dL (<2.0) 08/26/19 Unknown Ur Leukocyte Esterase Neg (Negative) 08/26/19 Unknown Urine WBC (Auto) 1.0 /HPF (0.0-6.0) 08/26/19 Unknown Urine RBC (Auto) 2.0 /HPF (0.0-6.0) 08/26/19 Unknown Urine Mucus Few /HPF 08/26/19 Unknown Coronavirus (PCR) Positive (Negative) A 08/26/19 Unknown Blood Type B NEGATIVE 08/30/19 14:01 Antibody Screen Negative 08/30/19 14:01 Browne/IV: Voiding Method Toilet IV Catheter Type [Right INT / Saline Lock Antecubital] Active Medications - Current Medications Current Medications: Generic Name Dose Route Start Last Admin Trade Name Freq PRN Reason Stop Dose Admin Acetaminophen 650 mg 08/26/19 23:20 Tylenol PO Q4H PRN Pain MILD(1-3)/Fever >100.5/VELASQUEZ Ascorbic Acid 500 mg 09/01/19 15:00 09/01/19 21:00 Vitamin C PO 500 mg BID KAREEM Administration Dexamethasone 6 mg 08/27/19 10:00 09/01/19 09:18 Decadron PO 09/04/19 10:01 6 mg DAILY KAREEM Administration Enoxaparin Sodium 40 mg 09/01/19 15:00 09/01/19 21:00 Enoxaparin SUB-Q 40 mg BID KAREEM Administration Famotidine 20 mg 09/01/19 15:00 09/01/19 15:42 Pepcid PO 20 mg QDAY KAREEM Administration Magnesium Hydroxide 30 ml 08/26/19 23:20 Milk Of Magnesia PO Q4H PRN Constipation Ondansetron HCl 4 mg 08/26/19 23:20 Zofran IV Q8H PRN Nausea And Vomiting Sodium Chloride 10 ml 08/27/19 10:00 09/01/19 21:00 Sodium Chloride Flush Syringe 10 Ml IV 10 ml BID KAREEM Administration Sodium Chloride 10 ml 08/26/19 23:20 Sodium Chloride Flush Syringe 10 Ml IV PRN PRN LINE FLUSH Zinc Sulfate 220 mg 09/01/19 15:00 09/01/19 21:01 Zinc Sulfate PO 220 mg BID KAREEM Administration
[2019-09-02] MEDS: FAMOTIDINE 20 MG TAB PO SCH (10:45)
[2019-09-02] MEDS: ZINC SULFATE 220 MG CAP PO SCH ×2 (10:45→22:56)
[2019-09-02] MEDS: ASCORBIC ACID 500 MG TAB PO SCH ×2 (10:45→22:56)
[2019-09-02] MEDS: ENOXAPARIN 40 MG/0.4 ML INJ SUB-Q SCH ×2 (10:46→22:56)
[2019-09-02] MEDS: DEXAMETHASONE 4 MG TAB PO SCH (10:46)
--- NOTE | 2019-09-02 14:17 | Progress Note ---
Assessment and Plan Cultures: Blood culture Assessment: 39-year-old male with history of obesity, admitted on 08/26/2019 due to 10-day history of shortness of breath or cough associated with low-grade fever at home: #Severe sepsis: likely due to bilateral pneumonia. #Severe COVID pneumonia: Patient presented with 10-day history of symptoms, chest x-ray with diffuse bilateral infiltrates. Admission O2 sats 88 on room air. Inflammatory markers are elevated -ferritin 1959, LDH 740, DDimer 504, CRP 25. Suspect cytokine release syndrome, patient is at risk for venous thromboembolism +/- microangiopathy with alveolar capillary microthrombi/. Status post Tocilizumab, on remdesivir and on IV steroids. #Acute hypoxemic respiratory failure: Currently on 4 L nasal cannula oxygen sats 96% Recommendations: continue Dexamethasone 6 mg IV/PO daily for 10 days continue Remdesivir 200 mg IV q day x 1 day followed by 100 mg IV q day x 4 days Obtain daily inflammatory markers - ferritin, Ddimer, CRP, LDH Consider prophylactic anticoagulation Follow-up IL-6 level High risk mortality due to severe COVID-19 infection and comorbidities. Will follow Yarelis Alvarado MD [facility] ([facility] M: [phone] O: [phone] F: [phone] Subjective Date of service: 09/02/19 Interval history: Afebrile, stable on 3 L nasal cannula. Objective - Exam Narrative Exam: Physical exam deferred due to PPE conservation strategy. Please refer to primary team's note. - Constitutional Vitals: Vital Signs Temp Pulse Resp BP Pulse Ox 98.9 F 71 19 119/65 99 09/02/19 11:44 09/02/19 11:44 09/02/19 11:44 09/02/19 11:44 09/02/19 11:44 Temperature -Last 24 Hours Temperature 98.9 F Temperature 97.5 F Temperature 97.7 F Temperature 98.4 F - Labs CBC & Chem 7: 08/27/19 05:09 08/27/19 05:09
--- NOTE | 2019-09-02 14:28 | Progress Note ---
Assessment and Plan Patient alert, awake. Obese. Resting on 3 litres O2. O2 saturation 99%. Says breathing better. Patient afebrile. No leukocytosis. Chest xray done 08/26/19 reported Borderline cardiomegaly and pulmonary vascular congestion/edema. Mild right basilar subsegmental atelectasis and elevation of the right hemidiaphragm. Patient received DEMRESIVIR. Patient presently on dexamethasone, S/C Lovenox and famotidine. - Patient Problems (1) Bilateral pneumonia Current Visit: Yes Status: Acute Plan to address problem: Patient received DEMRESIVIR. Patient presently on dexamethasone, S/C Lovenox and famotidine. (2) Hypoxia Current Visit: Yes Status: Acute Plan to address problem: Patient is on 3 litres o2. O2 saturation 99%. (3) Suspected COVID-19 virus infection Current Visit: Yes Status: Acute Plan to address problem: Patient received DEMRESIVIR. Patient presently on dexamethasone, S/C Lovenox and famotidine. Subjective Date of service: 09/02/19 Interval history: Patient alert, awake. Obese. Resting on 3 litres O2. O2 saturation 99%. Says breathing better. Patient afebrile. No leukocytosis. Chest xray done 08/26/19 reported Borderline cardiomegaly and pulmonary vascular congestion/edema. Mild right basilar subsegmental atelectasis and elevation of the right he midiaphragm. Patient received DEMRESIVIR. Patient presently on dexamethasone, S/C Lovenox and famotidine. Objective Vital Signs - 12hr 09/02/19 09/02/19 09/02/19 05:19 10:00 11:44 Temperature 97.5 F L 98.9 F Pulse Rate 71 71 Respiratory 18 19 Rate Blood Pressure 124/66 119/65 O2 Sat by Pulse 99 96 99 Oximetry Constitutional: no acute distress, alert Eyes: non-icteric ENT: oropharynx moist Neck: supple, no lymphadenopathy Effort: normal Ascultation: Bilateral: rhonchi Cardiovascular: regular rate and rhythm Gastrointestinal: normoactive bowel sounds, soft, non-tender Integumentary: normal Extremities: no cyanosis, no edema Neurologic: normal mental status, non-focal exam, pupils equal and round, CN II- XII normal Psychiatric: mood appropriate CBC and BMP: 08/27/19 05:09 08/27/19 05:09 ABG, PT/INR, D-dimer: PT/INR, D-dimer PT 13.1 Sec. (12.2-14.9) 08/27/19 05:09 INR 1.01 (0.87-1.13) 08/27/19 05:09 D-Dimer 669.92 ng/mlDDU (0-234) H 08/29/19 06:03 Abnormal lab findings: Abnormal Labs 08/26/19 08/26/19 08/26/19 19:38 19:38 19:38 WBC 12.2 H Hgb 15.3 H MCV 95 H RDW 12.6 L Seg Neuts % (Manual) 88.0 H Lymphocytes % (Manual) 7.0 L Seg Neutrophils # Man 10.7 H Lymphocytes # (Manual) 0.9 L D-Dimer Sodium 136 L Chloride 97.1 L Creatinine 0.6 L Glucose 117 H Lactic Acid 2.30 H* Calcium Ferritin AST 46 H ALT 58 H Lactate Dehydrogenase Troponin T 0.032 H C-Reactive Protein NT-Pro-B Natriuret Pep Albumin 3.4 L HDL Cholesterol 29 L Coronavirus (PCR) 08/26/19 08/26/19 08/26/19 19:38 19:38 19:38 WBC Hgb MCV RDW Seg Neuts % (Manual) Lymphocytes % (Manual) Seg Neutrophils # Man Lymphocytes # (Manual) D-Dimer 504.52 H Sodium Chloride Creatinine Glucose 116 H Lactic Acid Calcium Ferritin 1959.0 H AST ALT Lactate Dehydrogenase 740 H Troponin T C-Reactive Protein 25.00 H NT-Pro-B Natriuret Pep Albumin HDL Cholesterol Coronavirus (PCR) 08/26/19 08/26/19 08/27/19 19:38 Unknown 05:09 WBC Hgb MCV 96 H RDW 13.1 L Seg Neuts % (Manual) 94.0 H Lymphocytes % (Manual) 3.0 L Seg Neutrophils # Man 9.0 H Lymphocytes # (Manual) 0.3 L D-Dimer Sodium Chloride Creatinine Glucose Lactic Acid Calcium Ferritin AST ALT Lactate Dehydrogenase Troponin T C-Reactive Protein NT-Pro-B Natriuret Pep 616.8 H Albumin HDL Cholesterol Coronavirus (PCR) Positive A 08/27/19 08/29/19 08/29/19 05:09 06:03 06:03 WBC Hgb MCV RDW Seg Neuts % (Manual) Lymphocytes % (Manual) Seg Neutrophils # Man Lymphocytes # (Manual) D-Dimer 669.92 H Sodium Chloride Creatinine 0.5 L Glucose 125 H Lactic Acid Calcium 8.3 L Ferritin 1400.0 H AST ALT Lactate Dehydrogenase Troponin T C-Reactive Protein NT-Pro-B Natriuret Pep Albumin HDL Cholesterol Coronavirus (PCR) 08/29/19 06:03 WBC Hgb MCV RDW Seg Neuts % (Manual) Lymphocytes % (Manual) Seg Neutrophils # Man Lymphocytes # (Manual) D-Dimer Sodium Chloride Creatinine Glucose Lactic Acid Calcium Ferritin AST ALT Lactate Dehydrogenase 534 H Troponin T C-Reactive Protein NT-Pro-B Natriuret Pep Albumin HDL Cholesterol Coronavirus (PCR)
[2019-09-03] MEDS: DEXAMETHASONE 4 MG TAB PO SCH (10:03)
[2019-09-03] MEDS: ZINC SULFATE 220 MG CAP PO SCH (10:03)
[2019-09-03] MEDS: ASCORBIC ACID 500 MG TAB PO SCH (10:03)
[2019-09-03] MEDS: ENOXAPARIN 40 MG/0.4 ML INJ SUB-Q SCH (10:03)
[2019-09-03] MEDS: FAMOTIDINE 20 MG TAB PO SCH (10:03)
[2019-09-03 13:04] VITALS: BP 124/72
--- NOTE | 2019-09-03 13:28 | Progress Note ---
Assessment and Plan - Patient Problems (1) Pneumonia due to COVID-19 virus Current Visit: Yes Status: Acute Plan to address problem: -s/p Aceterma - s/p Remdisiver - Vit C and Zinc - Decadron 6mg daily (08/26-09/05) - Prone positioning for sleep - Supplemental oxygen - Pulmonary hygiene - Trend inflammatory markers (2) Hypoxia Current Visit: Yes Status: Acute Plan to address problem: - r/t COVID 19 PNA - Supplemental oxygenation -Pulmonary hygiene (3) DVT prophylaxis Current Visit: Yes Status: Acute Plan to address problem: - Lovenox - SCD while in bed - Encourage ambulation (4) Full code status Current Visit: Yes Status: Acute History Interval history: 39-year-old male with no significant past medical history presenting to the emergency room complaining of shortness of breath and nonproductive cough which has been ongoing for about 10 to 11 days, low-grade fever at home. Patient indicates that he was tested for COVID 19 about 5 days ago prior to admission however he has not received the results. Upon arrival in the emergency room patient was found to be hypoxic, chest x-ray done was consistent with possible pneumonia. This morning he on supplemental oxygenation and states his breathing is good. Continue supportive care. 08/26 Patient is awake alert and oriented, [id number] Mildly short of breath and has mild cough History is limited He is on nonrebreather mask COVID-19 test result is positive 08/28 Patient is alert and oriented He is still on nonrebreather mask Overall feels better and less dyspneic Denies any chest pain, cough or fever Discussed with respiratory therapist to see if he can come off the nonrebreather mask to nasal cannula Lab results reviewed 08/29: Continue current therapy patient still hypoxic. Continue oxygen management. Will obtain pulmonary consult due to hypoxia. Continue to encourage prone positioning. Wean oxygen as tolerated. Continue steroid therapy 08/30: We will wean oxygen further today. consent obtained for convalescent plasma therapy 08/31: Patient Code: 383134 FOR [facility]AMSA THERAPY, INFORMATION SENT TO BLOOD BANK Otherwise continue current therapy. Continue to wean oxygen plan discussed with the patient detail. 09/02/2019. Continue dexamethasone 6 mg IV for 10 days, s/p remdesivir IV, s/p Actemra. Hospitalist Physical - Constitutional Vitals: Temp Pulse Resp BP Pulse Ox 97.3 F L 69 17 126/79 99 09/03/19 04:03 09/03/19 04:03 09/03/19 04:03 09/03/19 04:03 09/03/19 04:03 General appearance: Present: no acute distress - EENT Eyes: Present: PERRL ENT: hearing intact - Neck Neck: Present: supple, normal ROM - Respiratory Respiratory effort: normal - Cardiovascular Rhythm: regular - Extremities Extremities: no ischemia, pulses intact, pulses symmetrical, No edema - Abdominal General gastrointestinal: soft, non-tender - Integumentary Integumentary: Present: warm, dry - Psychiatric Psychiatric: cooperative - Neurologic Neurologic: no focal deficits, moves all extremities - Allied Health Allied health notes reviewed: nursing, social work, case management HEART Score - HEART Score Troponin: Troponin T 0.032 ng/mL (0.00-0.029) H 08/26/19 19:38 Results - Labs CBC & Chem 7: 08/27/19 05:09 08/27/19 05:09 Labs: Laboratory Last Values WBC 9.6 K/mm3 (4.5-11.0) 08/27/19 05:09 RBC 4.68 M/mm3 (3.65-5.03) 08/27/19 05:09 Hgb 15.1 gm/dl (11.8-15.2) 08/27/19 05:09 Hct 44.8 % (35.5-45.6) 08/27/19 05:09 MCV 96 fl (84-94) H 08/27/19 05:09 MCH 32 pg (28-32) 08/27/19 05:09 MCHC 34 % (32-34) 08/27/19 05:09 RDW 13.1 % (13.2-15.2) L 08/27/19 05:09 Plt Count 213 K/mm3 (140-440) 08/27/19 05:09 Add Manual Diff Complete 08/27/19 05:09 Total Counted 100 08/27/19 05:09 Seg Neutrophils % Cable Maintainer 08/27/19 05:09 Seg Neuts % (Manual) 94.0 % (40.0-70.0) H 08/27/19 05:09 Band Neutrophils % 1.0 % 08/27/19 05:09 Lymphocytes % (Manual) 3.0 % (13.4-35.0) L 08/27/19 05:09 Reactive Lymphs % (Man) 0 % 08/27/19 05:09 Monocytes % (Manual) 2.0 % (0.0-7.3) 08/27/19 05:09 Eosinophils % (Manual) 0 % (0.0-4.3) 08/27/19 05:09 Basophils % (Manual) 0 % (0.0-1.8) 08/27/19 05:09 Metamyelocytes % 0 % 08/27/19 05:09 Myelocytes % 0 % 08/27/19 05:09 Promyelocytes % 0 % 08/27/19 05:09 Blast Cells % 0 % 08/27/19 05:09 Nucleated RBC % Not Reportable 08/27/19 05:09 Seg Neutrophils # Man 9.0 K/mm3 (1.8-7.7) H 08/27/19 05:09 Band Neutrophils # 0.1 K/mm3 08/27/19 05:09 Lymphocytes # (Manual) 0.3 K/mm3 (1.2-5.4) L 08/27/19 05:09 Abs React Lymphs (Man) 0.0 K/mm3 08/27/19 05:09 Monocytes # (Manual) 0.2 K/mm3 (0.0-0.8) 08/27/19 05:09 Eosinophils # (Manual) 0.0 K/mm3 (0.0-0.4) 08/27/19 05:09 Basophils # (Manual) 0.0 K/mm3 (0.0-0.1) 08/27/19 05:09 Metamyelocytes # 0.0 K/mm3 08/27/19 05:09 Myelocytes # 0.0 K/mm3 08/27/19 05:09 Promyelocytes # 0.0 K/mm3 08/27/19 05:09 Blast Cells # 0.0 K/mm3 08/27/19 05:09 WBC Morphology Not Reportable 08/27/19 05:09 Hypersegmented Neuts Not Reportable 08/27/19 05:09 Hyposegmented Neuts Not Reportable 08/27/19 05:09 Hypogranular Neuts Not Reportable 08/27/19 05:09 Smudge Cells Not Reportable 08/27/19 05:09 Toxic Granulation Not Reportable 08/27/19 05:09 Toxic Vacuolation Not Reportable 08/27/19 05:09 Dohle Bodies Not Reportable 08/27/19 05:09 Pelger-Huet Anomaly Not Reportable 08/27/19 05:09 Deepak Rods Not Reportable 08/27/19 05:09 Platelet Estimate Consistent w auto 08/27/19 05:09 Clumped Platelets Not Reportable 08/27/19 05:09 Plt Clumps, EDTA Not Reportable 08/27/19 05:09 Large Platelets Not Reportable 08/27/19 05:09 Giant Platelets Not Reportable 08/27/19 05:09 Platelet Satelliting Not Reportable 08/27/19 05:09 Plt Morphology Comment Not Reportable 08/27/19 05:09 RBC Morphology Normal 08/27/19 05:09 Dimorphic RBCs Not Reportable 08/27/19 05:09 Polychromasia Not Reportable 08/27/19 05:09 Hypochromasia Not Reportable 08/27/19 05:09 Poikilocytosis Not Reportable 08/27/19 05:09 Anisocytosis Not Reportable 08/27/19 05:09 Microcytosis Not Reportable 08/27/19 05:09 Macrocytosis Not Reportable 08/27/19 05:09 Spherocytes Not Reportable 08/27/19 05:09 Pappenheimer Bodies Not Reportable 08/27/19 05:09 Sickle Cells Not Reportable 08/27/19 05:09 Target Cells Not Reportable 08/27/19 05:09 Tear Drop Cells Not Reportable 08/27/19 05:09 Ovalocytes Not Reportable 08/27/19 05:09 Helmet Cells Not Reportable 08/27/19 05:09 Werner-Moline Bodies Not Reportable 08/27/19 05:09 [place] Rings Not Reportable 08/27/19 05:09 Queenie Cells Not Reportable 08/27/19 05:09 Bite Cells Not Reportable 08/27/19 05:09 Crenated Cell Not Reportable 08/27/19 05:09 Elliptocytes Not Reportable 08/27/19 05:09 Acanthocytes (Spur) Not Reportable 08/27/19 05:09 Rouleaux Not Reportable 08/27/19 05:09 Hemoglobin C Crystals Not Reportable 08/27/19 05:09 Schistocytes Not Reportable 08/27/19 05:09 Malaria parasites Not Reportable 08/27/19 05:09 Taqueria Bodies Not Reportable 08/27/19 05:09 Hem Pathologist Commnt No 08/27/19 05:09 PT 13.1 Sec. (12.2-14.9) 08/27/19 05:09 INR 1.01 (0.87-1.13) 08/27/19 05:09 D-Dimer 669.92 ng/mlDDU (0-234) H 08/29/19 06:03 Sodium 142 mmol/L (137-145) 08/27/19 05:09 Potassium 4.1 mmol/L (3.6-5.0) 08/27/19 05:09 Chloride 104.4 mmol/L (98-107) 08/27/19 05:09 Carbon Dioxide 24 mmol/L (22-30) 08/27/19 05:09 Anion Gap 18 mmol/L 08/27/19 05:09 BUN 11 mg/dL (9-20) 08/27/19 05:09 Creatinine 0.5 mg/dL (0.8-1.5) L 08/27/19 05:09 Estimated GFR > 60 ml/min 08/27/19 05:09 BUN/Creatinine Ratio 22 % 08/27/19 05:09 Glucose 125 mg/dL (75-100) H 08/27/19 05:09 Lactic Acid 1.70 mmol/L (0.7-2.0) 08/27/19 01:14 Calcium 8.3 mg/dL (8.4-10.2) L 08/27/19 05:09 Magnesium 2.30 mg/dL (1.7-2.3) 08/31/19 06:51 Ferritin 1400.0 ng/mL (13.0-400.0) H 08/29/19 06:03 Total Bilirubin 0.60 mg/dL (0.1-1.2) 08/26/19 19:38 AST 46 units/L (5-40) H 08/26/19 19:38 ALT 58 units/L (7-56) H 08/26/19 19:38 Alkaline Phosphatase 56 units/L (35-129) 08/26/19 19:38 Lactate Dehydrogenase 534 units/L (91-180) H 08/29/19 06:03 Troponin T 0.032 ng/mL (0.00-0.029) H 08/26/19 19:38 C-Reactive Protein 25.00 mg/dL (0.00-1.30) H 08/26/19 19:38 NT-Pro-B Natriuret Pep 616.8 pg/mL (0-450) H 08/26/19 19:38 Total Protein 7.1 g/dL (6.3-8.2) 08/26/19 19:38 Albumin 3.4 g/dL (3.9-5) L 08/26/19 19:38 Albumin/Globulin Ratio 0.9 % 08/26/19 19:38 Triglycerides 134 mg/dL (2-149) 08/26/19 19:38 Cholesterol 121 mg/dL (50-199) 08/26/19 19:38 LDL Cholesterol Direct 76 mg/dL (50-130) 08/26/19 19:38 HDL Cholesterol 29 mg/dL (40-59) L 08/26/19 19:38 Cholesterol/HDL Ratio 4.17 % 08/26/19 19:38 Procalcitonin 0.43 ng/mL (<0.15) 08/26/19 19:38 Urine Color Yellow (Yellow) 08/26/19 Unknown Urine Turbidity Clear (Clear) 08/26/19 Unknown Urine pH 6.0 (5.0-7.0) 08/26/19 Unknown Ur Specific Chambers 1.019 (1.003-1.030) 08/26/19 Unknown Urine Protein 30 mg/dl mg/dL (Negative) 08/26/19 Unknown Urine Glucose (UA) Neg mg/dL (Negative) 08/26/19 Unknown Urine Ketones 20 mg/dL (Negative) 08/26/19 Unknown Urine Blood Neg (Negative) 08/26/19 Unknown Urine Nitrite Neg (Negative) 08/26/19 Unknown Urine Bilirubin Neg (Negative) 08/26/19 Unknown Urine Urobilinogen 4.0 mg/dL (<2.0) 08/26/19 Unknown Ur Leukocyte Esterase Neg (Negative) 08/26/19 Unknown Urine WBC (Auto) 1.0 /HPF (0.0-6.0) 08/26/19 Unknown Urine RBC (Auto) 2.0 /HPF (0.0-6.0) 08/26/19 Unknown Urine Mucus Few /HPF 08/26/19 Unknown Coronavirus (PCR) Positive (Negative) A 08/26/19 Unknown Blood Type B NEGATIVE 08/30/19 14:01 Antibody Screen Negative 08/30/19 14:01 Browne/IV: Voiding Method Toilet IV Catheter Type [Left Forearm INT / Saline Lock ] IV Catheter Type [Right INT / Saline Lock Antecubital] Active Medications - Current Medications Current Medications: Generic Name Dose Route Start Last Admin Trade Name Freq PRN Reason Stop Dose Admin Acetaminophen 650 mg 08/26/19 23:20 Tylenol PO Q4H PRN Pain MILD(1-3)/Fever >100.5/VELASQUEZ Ascorbic Acid 500 mg 09/01/19 15:00 09/03/19 10:03 Vitamin C PO 500 mg BID KAREEM Administration Dexamethasone 6 mg 08/27/19 10:00 09/03/19 10:03 Decadron PO 09/04/19 10:01 6 mg DAILY KAREEM Administration Enoxaparin Sodium 40 mg 09/01/19 15:00 09/03/19 10:03 Enoxaparin SUB-Q 40 mg BID KAREEM Administration Famotidine 20 mg 09/01/19 15:00 09/03/19 10:03 Pepcid PO 20 mg QDAY KAREEM Administration Magnesium Hydroxide 30 ml 08/26/19 23:20 Milk Of Magnesia PO Q4H PRN Constipation Ondansetron HCl 4 mg 08/26/19 23:20 Zofran IV Q8H PRN Nausea And Vomiting Sodium Chloride 10 ml 08/27/19 10:00 09/03/19 10:03 Sodium Chloride Flush Syringe 10 Ml IV 10 ml BID KAREEM Administration Sodium Chloride 10 ml 08/26/19 23:20 Sodium Chloride Flush Syringe 10 Ml IV PRN PRN LINE FLUSH Zinc Sulfate 220 mg 09/01/19 15:00 09/03/19 10:03 Zinc Sulfate PO 220 mg BID KAREEM Administration Nutrition/Malnutrition Assess - Dietary Evaluation Nutrition/Malnutrition Findings: Nutrition Notes Start: 09/02/19 14:56 Freq: Status: Active Protocol: Document 09/02/19 14:56 LM (Rec: 09/02/19 14:57 LM [id number]) Nutrition Notes Need for Assessment generated from: LOS Initial or Follow up Brief Note Subjective/Other Information Screen for LOS. Pt with 100% intakes in chart. Nutrition Intervention Revisit per MD consult or patient Sign Off request:
--- NOTE | 2019-09-03 13:28 | Progress Note ---
Assessment and Plan Patient alert, awake. Obese. No acute respiratory distress.Resting on 3 litres O2. O2 saturation 99%. Says breathing better. Patient afebrile. No leukocytosis. Chest xray done 08/26/19 reported Borderline cardiomegaly and pulmonary vascular congestion/edema. Mild right basilar subsegmental atelectasis and elevation of the right hemidia phragm. Patient received DEMRESIVIR. Patient presently on dexamethasone, S/C Lovenox and famotidine. - Patient Problems (1) Bilateral pneumonia Current Visit: Yes Status: Acute Plan to address problem: Patient received DEMRESIVIR. Patient presently on dexamethasone, S/C Lovenox and famotidine. (2) Hypoxia Current Visit: Yes Status: Acute Plan to address problem: Patient is on 3 litres o2. O2 saturation 99%. (3) Suspected COVID-19 virus infection Current Visit: Yes Status: Acute Plan to address problem: Patient received DEMRESIVIR. Patient presently on dexamethasone, S/C Lovenox and famotidine. Subjective Date of service: 09/03/19 Interval history: Patient alert, awake. Obese. No acute respiratory distress. Resting on 3 litres O2. O2 saturation 99%. Says breathing better. Patient afebrile. No leukocytosis. Chest xray done 08/26/19 reported Borderline cardiomegaly and pulmonary vascular congestion/edema. Mild right basilar subsegmental atelectasis and elevation of the right hemidiaphragm. Patient received DEMRESIVIR. Patient presently on dexamethasone, S/C Lovenox and famotidine. Objective Vital Signs - 12hr 09/03/19 09/03/19 04:03 11:35 Temperature 97.3 F L 98.0 F Pulse Rate 69 67 Respiratory 17 20 Rate Blood Pressure 126/79 124/72 O2 Sat by Pulse 99 99 Oximetry Constitutional: no acute distress, alert Eyes: non-icteric ENT: oropharynx moist Neck: supple, no lymphadenopathy Effort: normal Ascultation: Bilateral: rhonchi Cardiovascular: regular rate and rhythm Gastrointestinal: normoactive bowel sounds, soft, non-tender Integumentary: normal Extremities: no cyanosis, no edema Neurologic: normal mental status, non-focal exam, pupils equal and round, CN II-XII normal Psychiatric: mood appropriate CBC and BMP: 08/27/19 05:09 08/27/19 05:09 ABG, PT/INR, D-dimer: PT/INR, D-dimer PT 13.1 Sec. (12.2-14.9) 08/27/19 05:09 INR 1.01 (0.87-1.13) 08/27/19 05:09 D-Dimer 669.92 ng/mlDDU (0-234) H 08/29/19 06:03 Abnormal lab findings: Abnormal Labs 08/26/19 08/26/19 08/26/19 19:38 19:38 19:38 WBC 12.2 H Hgb 15.3 H MCV 95 H RDW 12.6 L Seg Neuts % (Manual) 88.0 H Lymphocytes % (Manual) 7.0 L Seg Neutrophils # Man 10.7 H Lymphocytes # (Manual) 0.9 L D-Dimer Sodium 136 L Chloride 97.1 L Creatinine 0.6 L Glucose 117 H Lactic Acid 2.30 H* Calcium Ferritin AST 46 H ALT 58 H Lactate Dehydrogenase Troponin T 0.032 H C-Reactive Protein NT-Pro-B Natriuret Pep Albumin 3.4 L HDL Cholesterol 29 L Coronavirus (PCR) 08/26/19 08/26/19 08/26/19 19:38 19:38 19:38 WBC Hgb MCV RDW Seg Neuts % (Manual) Lymphocytes % (Manual) Seg Neutrophils # Man Lymphocytes # (Manual) D-Dimer 504.52 H Sodium Chloride Creatinine Glucose 116 H Lactic Acid Calcium Ferritin 1959.0 H AST ALT Lactate Dehydrogenase 740 H Troponin T C-Reactive Protein 25.00 H NT-Pro-B Natriuret Pep Albumin HDL Cholesterol Coronavirus (PCR) 08/26/19 08/26/19 08/27/19 19:38 Unknown 05:09 WBC Hgb MCV 96 H RDW 13.1 L Seg Neuts % (Manual) 94.0 H Lymphocytes % (Manual) 3.0 L Seg Neutrophils # Man 9.0 H Lymphocytes # (Manual) 0.3 L D-Dimer Sodium Chloride Creatinine Glucose Lactic Acid Calcium Ferritin AST ALT Lactate Dehydrogenase Troponin T C-Reactive Protein NT-Pro-B Natriuret Pep 616.8 H Albumin HDL Cholesterol Coronavirus (PCR) Positive A 08/27/19 08/29/19 08/29/19 05:09 06:03 06:03 WBC Hgb MCV RDW Seg Neuts % (Manual) Lymphocytes % (Manual) Seg Neutrophils # Man Lymphocytes # (Manual) D-Dimer 669.92 H Sodium Chloride Creatinine 0.5 L Glucose 125 H Lactic Acid Calcium 8.3 L Ferritin 1400.0 H AST ALT Lactate Dehydrogenase Troponin T C-Reactive Protein NT-Pro-B Natriuret Pep Albumin HDL Cholesterol Coronavirus (PCR) 08/29/19 06:03 WBC Hgb MCV RDW Seg Neuts % (Manual) Lymphocytes % (Manual) Seg Neutrophils # Man Lymphocytes # (Manual) D-Dimer Sodium Chloride Creatinine Glucose Lactic Acid Calcium Ferritin AST ALT Lactate Dehydrogenase 534 H Troponin T C-Reactive Protein NT-Pro-B Natriuret Pep Albumin HDL Cholesterol Coronavirus (PCR)
--- NOTE | 2019-09-03 15:05 | Progress Note ---
Assessment and Plan Cultures: Blood culture Assessment: 39-year-old male with history of obesity, admitted on 08/26/2019 due to 10-day history of shortness of breath or cough associated with low-grade fever at home: #Severe sepsis: likely due to bilateral pneumonia. #Severe COVID pneumonia: Patient presented with 10-day history of symptoms, chest x-ray with diffuse bilateral infiltrates. Admission O2 sats 88 on room air. Inflammatory markers are elevated -ferritin 1959, LDH 740, DDimer 504, CRP 25. Suspect cytokine release syndrome, patient is at risk for venous thromboembolism +/- microangiopathy with alveolar capillary microthrombi/. Status post Tocilizumab, on remdesivir and on IV steroids. #Acute hypoxemic respiratory failure: Currently on 4 L nasal cannula oxygen sats 96% Recommendations: continue Dexamethasone 6 mg IV/PO daily for 10 days Completed Remdesivir Obtain daily inflammatory markers - ferritin, Ddimer, CRP, LDH Consider prophylactic anticoagulation Follow-up IL-6 level Okay for discharge from infectious disease perspective Will follow Yarelis Alvarado MD [facility] M: [phone] O: [phone] F: [phone] Subjective Date of service: 09/03/19 Interval history: Afebrile, currently on room air. Objective - Exam Narrative Exam: Physical exam deferred due to PPE conservation strategy. Please refer to primary team's note. - Constitutional Vitals: Vital Signs Temp Pulse Resp BP Pulse Ox 98.0 F 67 20 124/72 99 09/03/19 11:35 09/03/19 11:35 09/03/19 11:35 09/03/19 11:35 09/03/19 11:35 Temperature -Last 24 Hours Temperature 98.0 F Temperature 97.3 F Temperature 98.0 F Temperature 97.9 F - Labs CBC & Chem 7: 08/27/19 05:09 08/27/19 05:09
--- NOTE | 2019-09-03 15:15 | Discharge Summary ---
Providers - Providers Date of Admission: 08/26/19 21:35 Attending physician: SREEDHAR DELCID 08/26/19 23:20 Consult to Physician [CONS] Routine Comment: Consulting Provider: LUCIUS PAREDES Physician Instructions: Reason For Exam: PNEUMONIA R/O COVID 19 08/31/19 07:42 Consult to Physician [CONS] Routine Comment: Consulting Provider: MARY ANN HENSLEY Physician Instructions: Reason For Exam: RESPIRATORY FAILURE Primary care physician: SAP GATHERER Hospitalization Condition: Serious Hospital course: 39-year-old male with no significant past medical history presenting to the emergency room complaining of shortness of breath and nonproductive cough which has been ongoing for about 10 to 11 days, low-grade fever at home. Patient indicated that he was tested for COVID 19 about 5 days ago prior to admission however he has not received the results. Upon arrival in the emergency room patient was found to be hypoxic, chest x-ray done was consistent with possible pneumonia. He was COVID positive and experienced persistent hypoxia. He received remdesivir IV and Actemra. He is being discharged on dexamethasone 6 mg PO for 10 days until 09/05. Disposition: DC- TO HOME OR SELFCARE - Discharge Diagnoses (1) Pneumonia due to COVID-19 virus Status: Acute (2) Hypoxia Status: Acute (3) DVT prophylaxis Status: Acute (4) Full code status Status: Acute Core Measure Documentation - Palliative Care Palliative Care/ Comfort Measures: Not Applicable - Core Measures Any of the following diagnoses?: none Exam - Constitutional Vitals: Temp Pulse Resp BP Pulse Ox 98.0 F 67 20 124/72 99 09/03/19 11:35 09/03/19 11:35 09/03/19 11:35 09/03/19 11:35 09/03/19 11:35 General appearance: Present: no acute distress - EENT Eyes: Present: PERRL, EOM intact ENT: hearing intact - Neck Neck: Present: supple - Respiratory Respiratory effort: normal - Cardiovascular Rhythm: regular - Extremities Extremities: no ischemia, pulses intact, pulses symmetrical Peripheral Pulses: within normal limits - Abdominal General gastrointestinal: Present: soft, non-tender - Integumentary Integumentary: Present: clear, warm, dry - Musculoskeletal Musculoskeletal: strength equal bilaterally - Psychiatric Psychiatric: appropriate mood/affect, cooperative - Neurologic Neurologic: CNII-XII intact, no focal deficits, moves all extremities - Allied Health Allied health notes reviewed: nursing, social work, case management Plan Activity: advance as tolerated Diet: regular Additional Instructions: Please provide COVID protocols and precautions. Maintain social distancing, self isolation for 2 weeks, clean frequently used surfaces frequently, sleep on stomach if needed to help breathing, wear a mask when around others. Frequesntly wash your hands and avoid touching eye/mouth/nose with dirty hands. Follow up with: PRIMARY CARE, [Primary Care Provider] - 3-5 Days
== END 2019-09-03 17:10 | disposition home or self-care (01) | DRG 871 ==
LOC: ED 17:36 → 3A 21:35
PROVIDERS: ADMIT Internal Medicine Geriatric Medicine; ATTEND Hospitalist
DX: A41.89 Other specified sepsis (principal); U07.1 COVID-19; J96.01 Acute respiratory failure with hypoxia; J12.89 Other viral pneumonia; R65.20 Severe sepsis without septic shock; E66.9 Obesity, unspecified; Z68.30 Body mass index [BMI] 30.0-30.9, adult
CPT/HCPCS: 36415; 71045; 80048; 80053; 80061; 81001; 82140; 82728; 82947; 83520; 83615; 83735; 83880; 84145; 84484; 85007; 85025; 85379; 85610; 86140; 86850; 86900; 86901; 87040; 93005; 94760; 96365; 96367; 96375; G0378; J0456; J0696; J1100; J1650; J7030; J7050; J8540; U0003-CS